=== PATIENT | male | born 1960 | race American Indian/Alaskan Native ===

== ENCOUNTER 2020-01-02 23:52 | Inpatient (IN) | payer OTHER ==
[2020-01-03] MEDS ORDERED: dexAMETHasone 20 MG/5 ML VIAL IV ONE (00:43)
[2020-01-03] MEDS ORDERED: cefTRIAXone/NS 2 GM/100 ML 2 GM/100 ML BAG IV SCH (00:56)
[2020-01-03] MEDS ORDERED: AZITHROMYCIN 500 MG in SODIUM CHLORIDE 0.9% 250ML 250 ML IV SCH ×2 (00:57→22:00)
[2020-01-03 00:59] LABS: Basophils % (Auto) 0.4 % (0.0-1.8); Eosinophils # (Auto) 0.2 K/mm3 (0.0-0.4); Eosinophils % (Auto) 1.4 % (0.0-4.3); Hematocrit 45.8 % (35.5-45.6); Hemoglobin 15.4 gm/dl (11.8-15.2); Lymphocytes # (Auto) 0.7 K/mm3 (1.2-5.4); Lymphocytes % (Auto) 5.5 % (13.4-35.0); Mean Corpuscular HGB Conc 34 % (32-34); Mean Corpuscular Volume 88 fl (84-94); Monocytes # (Auto) 1.2 K/mm3 (0.0-0.8); Monocytes % (Auto) 9.5 % (0.0-7.3); Platelet Count 404 K/mm3 (140-440); Red Blood Count 5.22 M/mm3 (3.65-5.03)
--- NOTE | 2020-01-03 01:02 | XRay Report ---
CHEST 1 VIEW INDICATION / CLINICAL INFORMATION: MARIO, SOB. COMPARISON: None available. FINDINGS: SUPPORT DEVICES: None. HEART / MEDIASTINUM: No significant abnormality. LUNGS / PLEURA: Bilateral peripheral airspace disease No pneumothorax. ADDITIONAL FINDINGS: No significant additional findings. IMPRESSION: Bilateral peripheral airspace disease consistent with atypical or viral pneumonia Signer Name: Aravind Kellogg MD FACR Signed: 01/03/2020 12:58 AM Workstation Name: [id number]
[2020-01-03 01:14] LABS: Alanine Aminotransferase 41 units/L (7-56); Albumin 2.9 g/dL (3.9-5); BUN/Creatinine Ratio 21; Blood Urea Nitrogen 19 mg/dL (9-20); Calcium 8.8 mg/dL (8.4-10.2); Hemolysis Index 8
--- NOTE | 2020-01-03 02:17 | Emergency Department Report ---
HPI - General Chief Complaint: Dyspnea/Respdistress Time Seen by Provider: 01/03/20 00:57 - HPI HPI: This is a 59-year-old -[place] male presents to the emergency department from home with a complaint of a 2-week history of fatigue, one-week history of intermittent fever, body aches, nausea and vomiting, and a 2 to 3-day history of progressively worsening shortness of breath. He has a past medical history of diabetes. Patient had a positive Covid test on 12/24/2019 at an urgent care on [address]. He denies any tobacco or illicit drug use. No recent travel or sick contacts at home. ED Past Medical Hx - Past Medical History Previous Medical History?: Yes Hx Diabetes: Yes - Surgical History Past Surgical History?: No - Social History Smoking Status: Never Smoker Substance Use Type: None ED Review of Systems ROS: Stated complaint: FATIGUE,VOMITTING,SOB,DIFFICULT WALKING Other details as noted in HPI Comment: All other systems reviewed and negative Constitutional: chills, fever Eyes: denies: eye pain, vision change ENT: denies: ear pain, throat pain Respiratory: cough, shortness of breath Cardiovascular: denies: chest pain, edema Gastrointestinal: vomiting. denies: abdominal pain Genitourinary: denies: dysuria, discharge Musculoskeletal: myalgia. denies: joint swelling Skin: denies: rash, lesions Neurological: denies: numbness, paresthesias Physical Exam - Physical Exam Vital Signs: Vital Signs 01/03/20 01/03/20 01/03/20 00:03 00:57 01:36 Temperature 98.1 F 98.8 F Pulse Rate 102 H 100 H Respiratory 22 20 Rate Blood Pressure 116/84 Blood Pressure 114/77 [Right] O2 Sat by Pulse 86 95 95 Oximetry Physical Exam: GENERAL: The patient is well-developed well-nourished. HENT: Normocephalic. Atraumatic. Patient has moist mucous membranes. EYES: Extraocular motions are intact. NECK: Supple. Trachea is midline. CHEST/LUNGS: There is some tachypnea but no accessory muscle use. HEART/CARDIOVASCULAR: Regular. There is mild tachycardia. ABDOMEN: Abdomen is soft, nontender. There is no abdominal distention. SKIN: Skin is warm and dry. NEURO: The patient is awake, alert, and oriented. The patient is cooperative. Normal speech. MUSCULOSKELETAL: There is no tenderness or deformity. ED Course Vital Signs 01/03/20 01/03/20 01/03/20 00:03 00:57 01:36 Temperature 98.1 F 98.8 F Pulse Rate 102 H 100 H Respiratory 22 20 Rate Blood Pressure 116/84 Blood Pressure 114/77 [Right] O2 Sat by Pulse 86 95 95 Oximetry ED Medical Decision Making - Lab Data Result diagrams: 01/03/20 00:22 01/03/20 00:53 - EKG Data -: EKG Interpreted by Me EKG shows normal: sinus rhythm, axis (left axis deviation), intervals, QRS complexes (Anteroseptal Q waves, LVH), ST-T waves Rate: tachycardia (101 bpm) - EKG Data When compared to previous EKG there are: previous EKG unavailable Interpretation: other (Sinus rhythm at 101 bpm, left axis deviation, normal intervals, anteroseptal Q waves, LVH) - Radiology Data Radiology results: image reviewed interpreted by me: Chest x-ray shows bilateral patchy infiltrates concerning for pneumonia - Medical Decision Making This patient presents to the emergency department with a complaint of some shortness of breath and has hypoxia with an oxygen saturation of 86% on room air. The patient has a recent positive COVID-19 test. He was placed on sup plemental oxygen via nasal cannula and the oxygen went up to about 94 to 95%. Chest x-ray shows bilateral pneumonia. His labs have multiple elevated inflammatory markers including d-dimer, LDH, CRP, ferritin, concerning for cytokine storm and consistent with his COVID-19 diagnosis. The patient has received Decadron, IV antibiotics and IV fluid resuscitation. The patient will be admitted to the hospital for further evaluation and treatment and was accepted for admission by the hospitalist, Dr Osorio. Critical Care Time: Yes Critical care time in (mins) excluding proc time.: 35 Critical care attestation.: If time is entered above; I have spent that time in minutes in the direct care of this critically ill patient, excluding procedure time. Critical care time was spent on this patient in doing his initial evaluation, multiple re- evaluations, ordering and interpretation of labs and imaging, treatment of his hypoxia, IV antibiotics, IV fluid resuscitation. Critical Care Time: 35 minutes ED Disposition Clinical Impression: Suspected 2019 novel coronavirus infection, Hypoxia Bilateral pneumonia Qualifiers: Pneumonia type: due to unspecified organism Lung location: unspecified part of lung Qualified Code(s): J18.9 - Pneumonia, unspecified organism Disposition: DC-09 OP ADMIT IP TO THIS HOSP Is pt being admited?: Yes Condition: Serious Time of Disposition: 02:54
[2020-01-03] MEDS ORDERED: SODIUM CHLORIDE 0.9% 1000 ML 1,000 ML IV ONE (02:36)
[2020-01-03] MEDS ORDERED: ACETAMINOPHEN 325 MG TAB PO PRN (03:52)
[2020-01-03] MEDS ORDERED: ONDANSETRON 4 MG/2 ML INJ IV PRN (03:53)
[2020-01-03] MEDS ORDERED: DEXTROSE 50% IN WATER (25GM) 50 ML SYRINGE IV PRN (03:56)
--- NOTE | 2020-01-03 04:41 | History and Physical Report ---
History of Present Illness Date of examination: 01/03/20 Date of admission: 01/03/20 03:47 Chief complaint: Chief complaint is shortness of breath History of present illness: History of presenting illness, patient is a 59-year-old male who has been having shortness of breath going on for 2 weeks, there was also history of fast associated fever, chills, body aches and cough. Patient denied history of chest pain, denied history of nausea and vomiting and said that his shortness of breath became progressively worse in the last 24 to 48 hours. Patient had positive COVID test on December 23 which was done at an urgent care. Past History Past Medical History: diabetes Past Surgical History: No surgical history Social history: no significant social history Family history: no significant family history Medications and Allergies Allergies Allergy/AdvReac Type Severity Reaction Status Date / Time No Known Allergies Allergy Verified 01/03/20 01:04 Active Meds: Active Medications Acetaminophen (Tylenol) 650 mg PO Q4H PRN PRN Reason: Fever >101 Dexamethasone (Decadron) 6 mg IV [facility]ILY [facility] Dextrose (D50w (25gm) Syringe) 50 ml IV Q30MIN PRN; Protocol PRN Reason: Hypoglycemia Heparin Sodium (Porcine) (Heparin) 5,000 unit SUB-Q Q12HR CYN Ceftriaxone Sodium (Rocephin/Ns 2 Gm/100 Ml) 2 gm in 100 mls @ 200 mls/hr IV Q24HR@2200 CYN; Protocol Last Admin: 01/03/20 01:20 Dose: 200 mls/hr Documented by: Sodium Chloride (Nacl 0.9% 1000 Ml) 1,000 mls @ 125 mls/hr IV ONCE ONE Stop: 01/03/20 10:35 Last Admin: 01/03/20 03:35 Dose: 125 mls/hr Documented by: Azithromycin 500 mg/ Sodium (Chloride) 250 mls @ 250 mls/hr IV Q24HR@2200 CYN; Protocol Insulin Human Regular (Humulin R) 0 unit SUB-Q AC CYN; Protocol Insulin Human Regular (Humulin R) 0 unit SUB-Q QHS CYN; Protocol Ondansetron HCl (Zofran) 4 mg IV Q8H PRN PRN Reason: Nausea And Vomiting Review of Systems Constitutional: fever, chills, weakness, malaise, no sweats Eyes: bilateral: other (No Bilateral Eye Symptoms) Ears, nose, mouth and throat: no ear pain, no ear discharge, no decreased hearing, no nose pain, no nasal congestion, no nasal discharge, no sinus pressure, no mouth pain, no dysphagia, no hoarseness, no sore throat, no swelling in mouth, no headache, no vertigo Cardiovascular: shortness of breath, no chest pain, no palpitations, no rapid/irregular heart beat, no edema, no syncope, no lightheadedness Respiratory: shortness of breath, no cough, no hemoptysis, no dyspnea on exertion, no wheezing, no pleurisy Gastrointestinal: no abdominal pain, no nausea, no vomiting, no diarrhea, no constipation, no change in bowel habits, no hematemesis, no hematochezia, no heartburn Genitourinary Male: no dysuria, no hematuria, no urinary frequency, no urinary hesitancy, no incontinence, no erectile dysfunction Rectal: no pain, no itching, no flatulence Musculoskeletal: no neck stiffness, no hot joints Integumentary: no rash, no pruritis, no redness, no sores, no wounds, no jaundice, no boils, no growths, no bullae, no acne, no hirsutism Neurological: weakness, no head injury, no parathesias, no numbness, no syncope, no tremors, no ataxia, no vertigo, no headaches, no convulsions, no change in speech, no confusion Psychiatric: no anxiety, no memory loss, no insomnia, no hypersomnia, no change in appetite, no change in libido, no hopelessness, no anhedonia Endocrine: no cold intolerance, no heat intolerance, no polydipsia, no polyuria, no palpatations Hematologic/Lymphatic: no easy bruising, no easy bleeding, no lymphadenopathy, no thrombophilia Allergic/Immunologic: no urticaria, no persistent infections Exam - Constitutional Vitals: Temp Pulse Resp BP Pulse Ox 98.8 F 81 27 H 123/76 97 01/03/20 00:57 01/03/20 04:00 01/03/20 04:00 01/03/20 04:00 01/03/20 04:00 General appearance: Present: mild distress - EENT Eyes: Present: PERRL, EOM intact ENT: hearing intact - Neck Neck: Present: supple, normal ROM - Respiratory Respiratory effort: normal - Cardiovascular Rhythm: regular Heart Sounds: Present: S1 & S2. Absent: gallop, systolic murmur, diastolic murmur, click - Extremities Extremities: no ischemia, No edema Peripheral Pulses: within normal limits - Abdominal General gastrointestinal: Present: soft, non-tender, non-distended. Absent: [place], distended, rigid, hepatomegaly, splenomegaly, hernia Male genitourinary: Present: deferred - Rectal Rectal Exam: deferred - Integumentary Integumentary: Present: clear, warm, dry. Absent: erythema, jaundice, rash - Musculoskeletal Musculoskeletal: strength equal bilaterally - Psychiatric Psychiatric: appropriate mood/affect HEART Score - HEART Score Age: 45-65 Risk factors: 1-2 risk factors - Critical Actions Critical Actions: 0-3 pts:0.9-1.7%risk of adverse cardiac event.Candidate for discharge Results - Labs CBC & Chem 7: 01/03/20 00:22 01/03/20 00:53 Labs: Laboratory Last Values WBC 12.3 K/mm3 (4.5-11.0) H 01/03/20 00:22 RBC 5.22 M/mm3 (3.65-5.03) H 01/03/20 00:22 Hgb 15.4 gm/dl (11.8-15.2) H 01/03/20 00:22 Hct 45.8 % (35.5-45.6) H 01/03/20 00:22 MCV 88 fl (84-94) 01/03/20 00:22 MCH 30 pg (28-32) 01/03/20 00:22 MCHC 34 % (32-34) 01/03/20 00:22 RDW 13.0 % (13.2-15.2) L 01/03/20 00:22 Plt Count 404 K/mm3 (140-440) 01/03/20 00:22 Lymph % (Auto) 5.5 % (13.4-35.0) L 01/03/20 00:22 Marion % (Auto) 9.5 % (0.0-7.3) H 01/03/20 00:22 Eos % (Auto) 1.4 % (0.0-4.3) 01/03/20 00:22 Baso % (Auto) 0.4 % (0.0-1.8) 01/03/20 00:22 Lymph # 0.7 K/mm3 (1.2-5.4) L 01/03/20 00:22 Marion # 1.2 K/mm3 (0.0-0.8) H 01/03/20 00:22 Eos # 0.2 K/mm3 (0.0-0.4) 01/03/20 00:22 Baso # 0.0 K/mm3 (0.0-0.1) 01/03/20 00:22 Seg Neutrophils % 83.2 % (40.0-70.0) H 01/03/20 00:22 Seg Neutrophils # 10.2 K/mm3 (1.8-7.7) H 01/03/20 00:22 D-Dimer 4932.34 ng/mlDDU (0-234) H 01/03/20 00:53 Sodium 133 mmol/L (137-145) L 01/03/20 00:22 Potassium 3.7 mmol/L (3.6-5.0) 01/03/20 00:22 Chloride 93.9 mmol/L (98-107) L 01/03/20 00:22 Carbon Dioxide 25 mmol/L (22-30) 01/03/20 00:22 Anion Gap 18 mmol/L 01/03/20 00:22 BUN 19 mg/dL (9-20) 01/03/20 00:22 Creatinine 0.9 mg/dL (0.8-1.3) 01/03/20 00:22 Estimated GFR > 60 ml/min 01/03/20 00:22 BUN/Creatinine Ratio 21 % 01/03/20 00:22 Glucose 298 mg/dL (75-100) H 01/03/20 00:53 Calcium 8.8 mg/dL (8.4-10.2) 01/03/20 00:22 Ferritin 1808.0 ng/mL (30.0-300.0) H 01/03/20 00:53 Total Bilirubin 1.30 mg/dL (0.1-1.2) H 01/03/20 00:22 AST 41 units/L (5-40) H 01/03/20 00:22 ALT 41 units/L (7-56) 01/03/20 00:22 Alkaline Phosphatase 49 units/L (35-129) 01/03/20 00:22 Lactate Dehydrogenase 434 units/L (91-180) H 01/03/20 00:53 C-Reactive Protein 9.00 mg/dL (0.00-1.30) H 01/03/20 00:53 Total Protein 7.8 g/dL (6.3-8.2) 01/03/20 00:22 Albumin 2.9 g/dL (3.9-5) L 01/03/20 00:22 Albumin/Globulin Ratio 0.6 % 01/03/20 00:22 Microbiology: Microbiology 01/03/20 01:07 Peripheral/Venous Blood Culture - Preliminary Culture in Progress 01/03/20 01:44 Peripheral/Venous Blood Culture - Preliminary Culture in Progress Assessment and Plan - Patient Problems (1) Diabetes Current Visit: Yes Status: Acute Plan to address problem: 1. Accu Checks 2. Sliding Scale Insulin Coverage 3. Consistent carbohydrate diet (2) Bilateral pneumonia Current Visit: Yes Status: Acute Qualifiers: Pneumonia type: due to unspecified organism Lung location: unspecified part of lung Qualified Code(s): J18.9 - Pneumonia, unspecified organism Plan to address problem: 1. I.V Zithromax Antibiotic 2. I.V Rocephin antibiotic 3. Robitussin for cough (3) Suspected 2019 novel coronavirus infection Current Visit: Yes Status: Acute Plan to address problem: 1. COVID -19 test 2. Contact and Droplet Isolation 3. Infectious disease consult 4. I.V Dexamethasone
[2020-01-03] MEDS: HEPARIN 5,000 UNIT/1 ML VIAL SUB-Q SCH (09:18)
[2020-01-03] MEDS: DEXAMETHASONE 4 MG TAB PO SCH (09:18)
[2020-01-03] MEDS ORDERED: dexAMETHasone 4 MG/ML VIAL IV SCH (10:00)
[2020-01-03] MEDS: INSULIN REGULAR, HUMAN 100 UNIT/ML 3ML VIAL SUB-Q SCH ×3 (10:23→19:10)
--- NOTE | 2020-01-03 11:56 | Consultation ---
History of Present Illness - Reason for Consult Consult date: 01/03/20 COVID Requesting physician: JESSICA LEYVA - History of Present Illness 59 years old male with history of diabetes, admitted on 01/03/2020 due to 2-week history of body aches, malaise, fever, chills, dry cough and progressive shortness of breath. Shortness of breath became worse over the last 48 hours. Patient tested positive for COVID-19 on 12/24/2019 at an urgent care facility. On arrival, temperature 98.1, HR 102, RR 28, O2 sat 86% on room air, BP 116/84. Initial WBC 12.2. D-dimer 4938. LDH 434. CRP 9. Procalcitonin 0.16. Glucose 286. Patient currently is on 3 L nasal cannula oxygen. Review of Systems: reviewed ED and H&P notes. Limited due to PPE conservation strategy Past History Past Medical History: diabetes Past Surgical History: No surgical history Social history: no significant social history Family history: no significant family history Medications and Allergies Allergies Allergy/AdvReac Type Severity Reaction Status Date / Time No Known Allergies Allergy Verified 01/03/20 01:04 Active Meds: Active Medications Acetaminophen (Tylenol) 650 mg PO Q4H PRN PRN Reason: Fever >101 Azithromycin (Zithromax) 500 mg PO QHS CYN Stop: 01/06/20 22:01 Dexamethasone (Decadron) 6 mg PO DAILY [facility] Last Admin: 01/03/20 09:18 Dose: 6 mg Documented by: Dextrose (D50w (25gm) Syringe) 50 ml IV Q30MIN PRN; Protocol PRN Reason: Hypoglycemia Heparin Sodium (Porcine) (Heparin) 5,000 unit SUB-Q Q12HR [facility] Last Admin: 01/03/20 09:18 Dose: 5,000 unit Documented by: Ceftriaxone Sodium (Rocephin/Ns 2 Gm/100 Ml) 2 gm in 100 mls @ 200 mls/hr IV Q24HR@2200 CYN; Protocol Last Admin: 01/03/20 01:20 Dose: 200 mls/hr Documented by: REMDESIVIR 200 mg/ Sodium (Chloride) 250 mls @ 500 mls/hr IV ONCE ONE Stop: 01/03/20 12:17 REMDESIVIR 100 mg/ Sodium (Chloride) 250 mls @ 500 mls/hr IV Q24HR@2100 [facility] Stop: 01/07/20 21:29 Insulin Human Regular (Humulin R) 0 unit SUB-Q AC [facility]; Protocol Last Admin: 01/03/20 10:23 Dose: 4 unit Documented by: Insulin Human Regular (Humulin R) 0 unit SUB-Q QHS [facility]; Protocol Ondansetron HCl (Zofran) 4 mg IV Q8H PRN PRN Reason: Nausea And Vomiting Sodium Chloride (Nacl 0.9%) 50 ml IV Q24H [facility] Stop: 01/07/20 12:01 Physical Examination - Physical Exam Narrative exam: Physical Exam: reviewed ED and hospitalist notes, limited due to conservation of PPE General appearance: limited due to conservation of PPE Eyes: limited due to conservation of PPE HENT: Atraumatic; limited due to conservation of PPE Lungs: limited due to conservation of PPE CV: limited due to conservation of PPE Abdomen: limited due to conservation of PPE Extremities: limited due to conservation of PPE Skin: limited due to conservation of PPE Psych: limited due to conservation of PPE Neuro: limited due to conservation of PPE - Constitutional Vitals: Vital Signs Temp Pulse Resp BP Pulse Ox 98.8 F 79 20 123/76 98 01/03/20 00:57 01/03/20 05:15 01/03/20 05:15 01/03/20 05:15 01/03/20 08:43 Temperature -Last 24 Hours Temperature 98.8 F Temperature 98.1 F Results - Labs CBC & Chem 7: 01/03/20 00:22 01/03/20 00:53 Labs: Abnormal lab results 01/03/20 01/03/20 01/03/20 Range/Units 00:22 00:22 00:53 WBC 12.3 H (4.5-11.0) K/mm3 RBC 5.22 H (3.65-5.03) M/mm3 Hgb 15.4 H (11.8-15.2) gm/dl Hct 45.8 H (35.5-45.6) % RDW 13.0 L (13.2-15.2) % Lymph % (Auto) 5.5 L (13.4-35.0) % Antelope % (Auto) 9.5 H (0.0-7.3) % Lymph # 0.7 L (1.2-5.4) K/mm3 Antelope # 1.2 H (0.0-0.8) K/mm3 Seg Neutrophils % 83.2 H (40.0-70.0) % Seg Neutrophils # 10.2 H (1.8-7.7) K/mm3 D-Dimer 4932.34 H (0-234) ng/mlDDU Sodium 133 L (137-145) mmol/L Chloride 93.9 L (98-107) mmol/L Glucose 286 H (75-100) mg/dL POC Glucose (70-105) Ferritin (30.0-300.0) ng/mL Total Bilirubin 1.30 H (0.1-1.2) mg/dL AST 41 H (5-40) units/L Lactate Dehydrogenase (91-180) units/L C-Reactive Protein (0.00-1.30) mg/dL Albumin 2.9 L (3.9-5) g/dL 01/03/20 01/03/20 01/03/20 Range/Units 00:53 00:53 09:38 WBC (4.5-11.0) K/mm3 RBC (3.65-5.03) M/mm3 Hgb (11.8-15.2) gm/dl Hct (35.5-45.6) % RDW (13.2-15.2) % Lymph % (Auto) (13.4-35.0) % Antelope % (Auto) (0.0-7.3) % Lymph # (1.2-5.4) K/mm3 [place]elope # (0.0-0.8) K/mm3 Seg Neutrophils % (40.0-70.0) % Seg Neutrophils # (1.8-7.7) K/mm3 D-Dimer (0-234) ng/mlDDU Sodium (137-145) mmol/L Chloride (98-107) mmol/L Glucose 298 H (75-100) mg/dL POC Glucose 343 H (70-105) Ferritin 1808.0 H (30.0-300.0) ng/mL Total Bilirubin (0.1-1.2) mg/dL AST (5-40) units/L Lactate Dehydrogenase 434 H (91-180) units/L C-Reactive Protein 9.00 H (0.00-1.30) mg/dL Albumin (3.9-5) g/dL Assessment and Plan Cultures: Blood culture pending COVID PCR pending COVID PCR 12/25/2019 positive Assessment: 59 years old male with history of diabetes, admitted 01/03/2020 due to 2-week history of body ache, malaise, fever, chills, dry cough and progressive shortness of breath: #Severe sepsis: With tachycardia, leukocytosis and hypoxia, likely due to bilateral pneumonia. #Severe COVID pneumonia: Chest x-ray with diffuse bilateral infiltrates. Inflammatory markers are elevated elevated -ferritin. Likely cytokine storm. Very high d-dimer 4938, risk for venous thromboembolism. #Acute hypoxemic respiratory failure: Initial O2 sats on room air, currently on 3 L oxygen #Elevated LFTs: Mild, from COVID #Diabetes mellitus: Uncontrolled Recommendations: -Start Dexamethasone 6 mg IV/PO daily for 10 days -Start Remdesivir 200 mg IV q day x 1 day followed by 100 mg IV q day x 4 days (CrCl>30. Order placed) -Monitor inflammatory markers - ferritin, Ddimer, CRP, LDH -Stop ceftriaxone and azithromycin, procalcitonin <0.25 ng/mL -Continue anticoagulation per protocol -Tight glycemic control Will follow Alyssa Hardy MD Infectious Diseases Customer Account Representative [facility], [facility] ([facility]) M [phone]
--- NOTE | 2020-01-03 13:57 | Event Note ---
Date: 01/03/20 59 years old male patient with history of diabetes, admitted this morning with 2-week history of body ache, malaise, fever, chills, dry cough and progressive shortness of breath: Initial work-up is consistent with severe sepsis, evaluated by ID., Reviewed the medical records, agree with the current management. Will follow pending work-up, adjust the management as needed, plan of care reviewed with the patient and his nurse
[2020-01-03] MEDS ORDERED: REMDESIVIR 200 MG in SODIUM CHLORIDE 0.9% 250ML 250 ML IV ONE (17:00)
[2020-01-03] MEDS ORDERED: SODIUM CHLORIDE 0.9% 50 ML IVPB IV SCH (17:00)
[2020-01-03] MEDS ORDERED: INSULIN NPH/REGULAR 70/30 INJ SUB-Q ONE (19:30)
[2020-01-03] MEDS ORDERED: AZITHROMYCIN 250 MG TAB PO SCH (22:00)
[2020-01-04] MEDS: INSULIN REGULAR, HUMAN 100 UNIT/ML 3ML VIAL SUB-Q SCH ×5 (00:07→22:25)
[2020-01-04] MEDS: HEPARIN 5,000 UNIT/1 ML VIAL SUB-Q SCH ×2 (00:07→09:58)
[2020-01-04] MEDS: INSULIN NPH/REGULAR 70/30 INJ SUB-Q SCH ×2 (08:33→16:54)
--- NOTE | 2020-01-04 08:59 | Progress Note ---
Assessment and Plan Cultures: Blood culture pending COVID PCR 12/25/2019 positive (outpatient) COVID PCR 01/03/2020 negative Assessment: 59 years old male with history of diabetes, admitted 01/03/2020 due to 2-week history of body ache, malaise, fever, chills, dry cough and progressive shortness of breath: #Severe sepsis: better, likely due to bilateral pneumonia. #Likely Severe COVID pneumonia: Chest x-ray with diffuse bilateral infiltrates. Inflammatory markers are elevated elevated -ferritin. Likely cytokine storm. Very high d-dimer 4938, risk for venous thromboembolism. COVID PCR 01/03/2020 negative. #Acute hypoxemic respiratory failure: currently NC 2L sats 95% #Elevated LFTs: Mild, from COVID #Diabetes mellitus: Uncontrolled Recommendations: -continueDexamethasone 6 mg IV/PO daily for 10 days -hold off Remdesivir as hypoxia is mild and COVID PCR negative. -Monitor inflammatory markers - ferritin, Ddimer, CRP, LDH -Continue anticoagulation per protocol - consider full anticoagulation if ddimer worsens -Tight glycemic control Will follow Alyssa Hardy MD Infectious Diseases Psychiatric Orderly [facility] ([facility]) [phone] Subjective Date of service: 01/04/20 Principal diagnosis: COVID Interval history: Remains on NC 2 L sats 95% Objective - Exam Narrative Exam: Physical Exam: reviewed ED and hospitalist notes, limited due to conservation of PPE General appearance: limited due to conservation of PPE Eyes: limited due to conservation of PPE HENT: Atraumatic; limited due to conservation of PPE Lungs: limited due to conservation of PPE CV: limited due to conservation of PPE Abdomen: limited due to conservation of PPE Extremities: limited due to conservation of PPE Skin: limited due to conservation of PPE Psych: limited due to conservation of PPE Neuro: limited due to conservation of PPE - Constitutional Vitals: Vital Signs Temp Pulse Resp BP Pulse Ox 98.0 F 60 18 111/70 95 01/04/20 05:17 01/04/20 04:00 01/04/20 05:17 01/04/20 05:17 01/04/20 04:00 Temperature -Last 24 Hours Temperature 98.0 F Temperature 98 F Temperature 97.3 F Temperature 98.0 F Temperature 97.7 F - Labs CBC & Chem 7: 01/03/20 00:22 01/03/20 00:53 Labs: Abnormal lab results 01/03/20 01/03/20 01/03/20 Range/Units 09:38 12:34 17:06 POC Glucose 343 H 331 H 422 H (70-105) 01/03/20 01/03/20 01/04/20 Range/Units 19:55 23:27 07:47 POC Glucose 422 H 336 H 272 H (70-105)
[2020-01-04] MEDS: DEXAMETHASONE 4 MG TAB PO SCH (09:58)
[2020-01-04] MEDS ORDERED: POTASSIUM CHLORIDE ER 20 MEQ TAB PO ONE (13:30)
--- NOTE | 2020-01-04 15:25 | Cat Scan Report ---
CTA CHEST WITH CONTRAST INDICATION : P.E. PROTOCOL!!! Elevated D-dimer / Shortness of breath. TECHNIQUE: Axial imaging performed through the chest, with contrast bolus timing set to maximize opa cification of the pulmonary arteries. Sagittal and coronal reformatted images. 3-plane MIP reformatte d images were obtained. All CT scans at this location are performed using CT dose reduction for ALAR A by means of automated exposure control. 100 mL of intravenous contrast administered. COMPARISON: None FINDINGS: Bolus: Contrast bolus timing is adequate. PTE: This examination is slightly limited by breathing motion artifact. No pulmonary embolus is dete cted. Mediastinum: Heart and great vessels appear normal. No pathologic mediastinal adenopathy. Lungs: Diffuse bilateral lung opacities are identified with peripheral and basilar predominance. No evidence for nodule, mass, consolidation, pleural fluid or pneumothorax. Bones: No significant abnormality. Upper abdomen: Limited imaging of the upper abdomen shows nothing acute. IMPRESSION: No pulmonary embolus is identified. Diffuse bilateral lung opacities are identified concerning for atypical pneumonia or viral infection/ Covid. Please correlate with the patient's clinical presentation. Signer Name: Isreal Rainey Jr, MD Signed: 01/04/2020 3:20 PM Workstation Name: [id number]
--- NOTE | 2020-01-04 16:38 | Vascular Lab Report ---
DUPLEX DOPPLER LOWER EXTREMITY VEINS, BILATERAL INDICATION / CLINICAL INFORMATION: Elevated D-dimers/evaluate for DVT. TECHNIQUE: Duplex doppler imaging was performed through the veins of both lower extremities using venous gosia hortencia and other maneuvers. COMPARISON: None available. FINDINGS: RIGHT COMMON FEMORAL VEIN: Negative. RIGHT FEMORAL VEIN: Negative. RIGHT POPLITEAL VEIN: Negative. RIGHT CALF VEINS: Negative. LEFT COMMON FEMORAL VEIN: Negative. LEFT FEMORAL VEIN: Negative. LEFT POPLITEAL VEIN: Negative. LEFT CALF VEINS: Negative. ADDITIONAL FINDINGS: None. IMPRESSION: 1. No sonographic evidence for DVT in either lower extremity. Signer Name: Daniel Watkins MD Signed: 01/04/2020 4:33 PM Workstation Name: [id number]
--- NOTE | 2020-01-04 19:21 | Progress Note ---
Assessment and Plan Assessment and plan: --History of positive COVID[12/25/2019/outside] COVID-19 test -01/03/2020 However patient's inflammatory markers are very high. Continue dexamethasone. --Severe sepsis/bilateral pneumonia DC empiric antibiotics, oxygen and supportive care --Type 2 diabetes mellitus; uncontrolled Accu-Chek sliding scale coverage ADA diet Increase insulin 70/30 dose to 20 units subcu twice a day Check A1c, diabetic education, diabetic nutrition education --Elevated D-dimers; CTA chest negative for PE, lower extremity venous Doppler negative for DVT High risk for venous thromboembolism Recommend full dose anticoagulation --Severe malnutrition/hypoalbuminemia Nutrition supplements, nutrition consult --Very mild transaminitis; probably from COVID Trend LFTs, supportive care --DVT prophylaxis; on full anticoagulation Per COVID protocol Closely monitor the patient and adjust management as needed Plan of care reviewed with the patient and his nurse Medical Office Professional Instructor recommendations noted and appreciated History Interval history: Have seen and examined the patient at the bedside Patient's chart and medications reviewed Patient complains of generalized weakness Wants to go home Patient is afebrile, mild distress Vital signs noted Hospitalist Physical - Constitutional Vitals: Temp Pulse Resp BP Pulse Ox 98.5 F 80 18 131/83 97 01/04/20 15:53 01/04/20 15:53 01/04/20 15:53 01/04/20 15:53 01/04/20 15:53 General appearance: Present: mild distress, well-nourished - EENT Eyes: Present: PERRL, EOM intact - Neck Neck: Present: supple, normal ROM - Respiratory Respiratory effort: normal Respiratory: bilateral: diminished, rhonchi, negative: rales, wheezing - Cardiovascular Rhythm: regular Heart Sounds: Present: S1 & S2 - Extremities Extremities: no ischemia, No edema - Abdominal General gastrointestinal: soft, non-tender, non-distended, normal bowel sounds - Integumentary Integumentary: Present: clear, warm - Psychiatric Psychiatric: appropriate mood/affect, cooperative - Neurologic Neurologic: CNII-XII intact, moves all extremities HEART Score - HEART Score Age: 45-65 Risk factors: 1-2 risk factors - Critical Actions Critical Actions: 0-3 pts:0.9-1.7%risk of adverse cardiac event.Candidate for discharge Results - Labs CBC & Chem 7: 01/03/20 00:22 01/03/20 00:53 Labs: Laboratory Last Values WBC 12.3 K/mm3 (4.5-11.0) H 01/03/20 00:22 RBC 5.22 M/mm3 (3.65-5.03) H 01/03/20 00:22 Hgb 15.4 gm/dl (11.8-15.2) H 01/03/20 00:22 Hct 45.8 % (35.5-45.6) H 01/03/20 00:22 MCV 88 fl (84-94) 01/03/20 00:22 MCH 30 pg (28-32) 01/03/20 00:22 MCHC 34 % (32-34) 01/03/20 00:22 RDW 13.0 % (13.2-15.2) L 01/03/20 00:22 Plt Count 404 K/mm3 (140-440) 01/03/20 00:22 Lymph % (Auto) 5.5 % (13.4-35.0) L 01/03/20 00:22 [place] % (Auto) 9.5 % (0.0-7.3) H 01/03/20 00:22 Eos % (Auto) 1.4 % (0.0-4.3) 01/03/20 00:22 Baso % (Auto) 0.4 % (0.0-1.8) 01/03/20 00:22 Lymph # 0.7 K/mm3 (1.2-5.4) L 01/03/20 00:22 [place] # 1.2 K/mm3 (0.0-0.8) H 01/03/20 00:22 Eos # 0.2 K/mm3 (0.0-0.4) 01/03/20 00:22 Baso # 0.0 K/mm3 (0.0-0.1) 01/03/20 00:22 Seg Neutrophils % 83.2 % (40.0-70.0) H 01/03/20 00:22 Seg Neutrophils # 10.2 K/mm3 (1.8-7.7) H 01/03/20 00:22 D-Dimer 4932.34 ng/mlDDU (0-234) H 01/03/20 00:53 Sodium 133 mmol/L (137-145) L 01/03/20 00:22 Potassium 3.7 mmol/L (3.6-5.0) 01/03/20 00:22 Chloride 93.9 mmol/L (98-107) L 01/03/20 00:22 Carbon Dioxide 25 mmol/L (22-30) 01/03/20 00:22 Anion Gap 18 mmol/L 01/03/20 00:22 BUN 19 mg/dL (9-20) 01/03/20 00:22 Creatinine 0.9 mg/dL (0.8-1.3) 01/03/20 00:22 Estimated GFR > 60 ml/min 01/03/20 00:22 BUN/Creatinine Ratio 21 % 01/03/20 00:22 Glucose 298 mg/dL (75-100) H 01/03/20 00:53 POC Glucose 319 (70-105) H 01/04/20 16:08 Calcium 8.8 mg/dL (8.4-10.2) 01/03/20 00:22 Ferritin 1808.0 ng/mL (30.0-300.0) H 01/03/20 00:53 Total Bilirubin 1.30 mg/dL (0.1-1.2) H 01/03/20 00:22 AST 41 units/L (5-40) H 01/03/20 00:22 ALT 41 units/L (7-56) 01/03/20 00:22 Alkaline Phosphatase 49 units/L (35-129) 01/03/20 00:22 Lactate Dehydrogenase 434 units/L (91-180) H 01/03/20 00:53 C-Reactive Protein 9.00 mg/dL (0.00-1.30) H 01/03/20 00:53 Total Protein 7.8 g/dL (6.3-8.2) 01/03/20 00:22 Albumin 2.9 g/dL (3.9-5) L 01/03/20 00:22 Albumin/Globulin Ratio 0.6 % 01/03/20 00:22 Procalcitonin 0.16 ng/mL (<0.15) 01/03/20 00:53 Coronavirus (PCR) Negative (Negative) 01/03/20 08:18 Microbiology: Microbiology 01/03/20 01:07 Peripheral/Venous Blood Culture - Preliminary NO GROWTH AFTER 24 HOURS 01/03/20 01:44 Peripheral/Venous Blood Culture - Preliminary NO GROWTH AFTER 24 HOURS Nieves/IV: Voiding Method Toilet IV Catheter Type [Right INT / Saline Lock Antecubital] IV Catheter Type [Left Forearm INT / Saline Lock ] Active Medications - Current Medications Current Medications: Generic Name Dose Route Start Last Admin Trade Name Freq PRN Reason Stop Dose Admin Acetaminophen 650 mg 01/03/20 03:52 Tylenol PO Q4H PRN Fever >101 Dexamethasone 6 mg 01/03/20 10:00 01/04/20 09:58 Decadron PO 01/12/20 10:01 6 mg DAILY CYN Administration Dextrose 50 ml 01/03/20 03:56 D50w (25gm) Syringe IV Q30MIN PRN Hypoglycemia Protocol Heparin Sodium (Porcine) 5,000 unit 01/03/20 10:00 01/04/20 09:58 Heparin SUB-Q 5,000 unit Q12HR CYN Administration Insulin Human Isoph/Insulin Regular 10 unit 01/04/20 08:00 01/04/20 16:54 Humulin 70/30 SUB-Q 10 unit BIDDIAB CYN Administration Insulin Human Regular 0 unit 01/03/20 07:30 01/04/20 16:50 Humulin R SUB-Q 4 unit AC CYN Administration Protocol Insulin Human Regular 0 unit 01/03/20 22:00 01/04/20 00:07 Humulin R SUB-Q 4 unit QHS CYN Administration Protocol Ondansetron HCl 4 mg 01/03/20 03:53 Zofran IV Q8H PRN Nausea And Vomiting Nutrition/Malnutrition Assess - Dietary Evaluation Nutrition/Malnutrition Findings: Nutrition Notes Start: 01/04/20 13:30 Freq: Status: Active Protocol: Document 01/04/20 13:30 LM (Rec: 01/04/20 13:31 LM [id number]) Nutrition Notes Need for Assessment generated from: senior product integrity engineer Initial or Follow up Brief Note Subjective/Other Information RN screen for skin risk. Jayjay score is 21. Pt has 100 % intakes in chart. Nutrition Intervention Revisit per MD consult or patient Sign Off request:
[2020-01-04] MEDS ORDERED: REMDESIVIR 100 MG in SODIUM CHLORIDE 0.9% 250ML 250 ML IV SCH (21:00)
[2020-01-04] MEDS: ENOXAPARIN 100 MG/1 ML INJ SUB-Q SCH ×2 (22:21→22:31)
[2020-01-05] MEDS: INSULIN NPH/REGULAR 70/30 INJ SUB-Q SCH ×2 (09:57→17:23)
[2020-01-05] MEDS: INSULIN REGULAR, HUMAN 100 UNIT/ML 3ML VIAL SUB-Q SCH ×4 (09:58→22:18)
[2020-01-05] MEDS: ENOXAPARIN 100 MG/1 ML INJ SUB-Q SCH ×2 (09:58→22:19)
[2020-01-05] MEDS: DEXAMETHASONE 4 MG TAB PO SCH (10:01)
--- NOTE | 2020-01-05 13:14 | Progress Note ---
Assessment and Plan Cultures: Blood culture pending COVID PCR 12/25/2019 positive (outpatient) COVID PCR 01/03/2020 negative Assessment: 59 years old male with history of diabetes, admitted 01/03/2020 due to 2-week history of body ache, malaise, fever, chills, dry cough and progressive shortness of breath: #Severe sepsis: better, likely due to bilateral pneumonia. #Likely Severe COVID pneumonia: Chest x-ray with diffuse bilateral infiltrates. Inflammatory markers are very high, likely cytokine storm. Very high d-dimer 4938, risk for venous thromboembolism. COVID PCR 01/03/2020 negative. Initial COVID PCR 12/25/2019+ as an outpatient. #Acute hypoxemic respiratory failure: currently NC 2L sats 93% #Elevated LFTs: Mild, from COVID #Diabetes mellitus: Uncontrolled, now better Recommendations: -Obtain ambulating oxygen saturation -continueDexamethasone 6 mg IV/PO daily for 10 days -day 2 out of 10 -hold off Remdesivir as hypoxia is mild and COVID PCR negative. -Monitor inflammatory markers - ferritin, Ddimer, CRP, LDH, check today -Continue anticoagulation per protocol - consider full anticoagulation if ddimer worsens -Tight glycemic control Dr. Silverman will be covering the weekend, Dr. Patton will be rounding on Wednesday. Will follow Alyssa Hardy MD Infectious Diseases Radiology Manager [facility] ([facility]) M [phone] Subjective Date of service: 01/05/20 Principal diagnosis: COVID Interval history: Remains on NC 2 L sats 93% Objective - Exam Narrative Exam: Physical Exam: reviewed ED and hospitalist notes, limited due to conservation of PPE General appearance: limited due to conservation of PPE Eyes: limited due to conservation of PPE HENT: Atraumatic; limited due to conservation of PPE Lungs: limited due to conservation of PPE CV: limited due to conservation of PPE Abdomen: limited due to conservation of PPE Extremities: limited due to conservation of PPE Skin: limited due to conservation of PPE Psych: limited due to conservation of PPE Neuro: limited due to conservation of PPE - Constitutional Vitals: Vital Signs Temp Pulse Resp BP Pulse Ox 98.3 F 61 20 137/82 93 01/05/20 05:51 01/05/20 05:51 01/05/20 05:51 01/05/20 05:51 01/05/20 05:51 Temperature -Last 24 Hours Temperature 98.3 F Temperature 98.3 F Temperature 98.5 F - Labs CBC & Chem 7: 01/03/20 00:22 01/03/20 00:53 Labs: Abnormal lab results 01/04/20 01/04/20 01/05/20 Range/Units 16:08 22:10 09:52 POC Glucose 319 H 301 H 152 H (70-105)
[2020-01-05 14:41] LABS: C-Reactive Protein 2.3 mg/dL (0.00-1.30)
--- NOTE | 2020-01-05 18:26 | Progress Note ---
Assessment and Plan Assessment and plan: --History of positive COVID[12/25/2019/outside] COVID-19 test -01/03/2020 However patient's inflammatory markers are very high. -Droplet and contact isolation -Continue dexamethasone total 10 days -No Remdisivir as patient is not hypoxic, and recent COVID is negative -Continue full dose anticoagulation -Trend inflammatory markers --Severe sepsis/bilateral pneumonia DC empiric antibiotics, oxygen and supportive care --Type 2 diabetes mellitus; uncontrolled Accu-Chek sliding scale coverage ADA diet Increase insulin 70/30 dose to 24 units subcu twice a day Check A1c, diabetic education, diabetic nutrition education --Elevated D-dimers; CTA chest negative for PE, lower extremity venous Doppler negative for DVT High risk for venous thromboembolism, full dose anticoagulation --Severe malnutrition/hypoalbuminemia Nutrition supplements, nutrition consult --Very mild transaminitis; probably from COVID Trend LFTs, supportive care --DVT prophylaxis; on full anticoagulation Per COVID protocol --Full CODE STATUS Closely monitor the patient and adjust management as needed Plan of care reviewed with the patient and his nurse Patent Law Specialist recommendations noted and appreciated History Interval history: I have seen and examined the patient in the bedside Isolation precautions and PPE protocols observed Patient feels slightly better No new complaints Vital signs noted Hospitalist Physical - Constitutional Vitals: Temp Pulse Resp BP Pulse Ox 98.7 F 94 H 20 143/85 93 01/05/20 15:42 01/05/20 15:42 01/05/20 15:42 01/05/20 15:42 01/05/20 15:42 General appearance: Present: no acute distress, well-nourished - EENT Eyes: Present: PERRL, EOM intact - Neck Neck: Present: supple, normal ROM - Respiratory Respiratory effort: normal Respiratory: bilateral: diminished, rhonchi, negative: rales, wheezing - Cardiovascular Rhythm: regular Heart Sounds: Present: S1 & S2 - Extremities Extremities: no ischemia, No edema - Abdominal General gastrointestinal: soft, non-tender, non-distended, normal bowel sounds - Integumentary Integumentary: Present: clear, warm - Psychiatric Psychiatric: appropriate mood/affect, cooperative - Neurologic Neurologic: CNII-XII intact, moves all extremities HEART Score - HEART Score Age: 45-65 Risk factors: 1-2 risk factors - Critical Actions Critical Actions: 0-3 pts:0.9-1.7%risk of adverse cardiac event.Candidate for discharge Results - Labs CBC & Chem 7: 01/03/20 00:22 01/03/20 00:53 Labs: Laboratory Last Values WBC 12.3 K/mm3 (4.5-11.0) H 01/03/20 00:22 RBC 5.22 M/mm3 (3.65-5.03) H 01/03/20 00:22 Hgb 15.4 gm/dl (11.8-15.2) H 01/03/20 00:22 Hct 45.8 % (35.5-45.6) H 01/03/20 00:22 MCV 88 fl (84-94) 01/03/20 00:22 MCH 30 pg (28-32) 01/03/20 00:22 MCHC 34 % (32-34) 01/03/20 00:22 RDW 13.0 % (13.2-15.2) L 01/03/20 00:22 Plt Count 404 K/mm3 (140-440) 01/03/20 00:22 Lymph % (Auto) 5.5 % (13.4-35.0) L 01/03/20 00:22 [place] % (Auto) 9.5 % (0.0-7.3) H 01/03/20 00:22 Eos % (Auto) 1.4 % (0.0-4.3) 01/03/20 00:22 Baso % (Auto) 0.4 % (0.0-1.8) 01/03/20 00:22 Lymph # 0.7 K/mm3 (1.2-5.4) L 01/03/20 00:22 [place] # 1.2 K/mm3 (0.0-0.8) H 01/03/20 00:22 Eos # 0.2 K/mm3 (0.0-0.4) 01/03/20 00:22 Baso # 0.0 K/mm3 (0.0-0.1) 01/03/20 00:22 Seg Neutrophils % 83.2 % (40.0-70.0) H 01/03/20 00:22 Seg Neutrophils # 10.2 K/mm3 (1.8-7.7) H 01/03/20 00:22 D-Dimer 3759.27 ng/mlDDU (0-234) H 01/05/20 13:35 Sodium 133 mmol/L (137-145) L 01/03/20 00:22 Potassium 3.7 mmol/L (3.6-5.0) 01/03/20 00:22 Chloride 93.9 mmol/L (98-107) L 01/03/20 00:22 Carbon Dioxide 25 mmol/L (22-30) 01/03/20 00:22 Anion Gap 18 mmol/L 01/03/20 00:22 BUN 19 mg/dL (9-20) 01/03/20 00:22 Creatinine 0.9 mg/dL (0.8-1.3) 01/03/20 00:22 Estimated GFR > 60 ml/min 01/03/20 00:22 BUN/Creatinine Ratio 21 % 01/03/20 00:22 Glucose 298 mg/dL (75-100) H 01/03/20 00:53 POC Glucose 365 (70-105) H 01/05/20 17:00 Calcium 8.8 mg/dL (8.4-10.2) 01/03/20 00:22 Ferritin 1268.0 ng/mL (30.0-300.0) H 01/05/20 13:35 Total Bilirubin 1.30 mg/dL (0.1-1.2) H 01/03/20 00:22 AST 41 units/L (5-40) H 01/03/20 00:22 ALT 41 units/L (7-56) 01/03/20 00:22 Alkaline Phosphatase 49 units/L (35-129) 01/03/20 00:22 Lactate Dehydrogenase 357 units/L (91-180) H 01/05/20 13:35 C-Reactive Protein 2.30 mg/dL (0.00-1.30) H 01/05/20 13:35 Total Protein 7.8 g/dL (6.3-8.2) 01/03/20 00:22 Albumin 2.9 g/dL (3.9-5) L 01/03/20 00:22 Albumin/Globulin Ratio 0.6 % 01/03/20 00:22 Procalcitonin 0.16 ng/mL (<0.15) 01/03/20 00:53 Coronavirus (PCR) Negative (Negative) 01/03/20 08:18 Microbiology: Microbiology 01/03/20 01:07 Peripheral/Venous Blood Culture - Preliminary NO GROWTH AFTER 48 HOURS 01/03/20 01:44 Peripheral/Venous Blood Culture - Preliminary NO GROWTH AFTER 48 HOURS Nieves/IV: Voiding Method Toilet IV Catheter Type [Right INT / Saline Lock Antecubital] IV Catheter Type [Left Forearm INT / Saline Lock ] Active Medications - Current Medications Current Medications: Generic Name Dose Route Start Last Admin Trade Name Freq PRN Reason Stop Dose Admin Acetaminophen 650 mg 01/03/20 03:52 Tylenol PO Q4H PRN Fever >101 Dexamethasone 6 mg 01/03/20 10:00 01/05/20 10:01 Decadron PO 01/12/20 10:01 6 mg DAILY CYN Administration Dextrose 50 ml 01/03/20 03:56 D50w (25gm) Syringe IV Q30MIN PRN Hypoglycemia Protocol Enoxaparin Sodium 90 mg 01/04/20 22:00 01/05/20 09:58 Enoxaparin 1 mg/kg (90 mg) 90 mg SUB-Q Administration Q12HR CYN Insulin Human Isoph/Insulin Regular 20 unit 01/04/20 19:19 01/05/20 17:23 Humulin 70/30 SUB-Q 20 unit BIDDIAB CYN Administration Insulin Human Regular 0 unit 01/03/20 07:30 01/05/20 17:23 Humulin R SUB-Q 5 unit AC CYN Administration Protocol Insulin Human Regular 0 unit 01/03/20 22:00 01/04/20 22:25 Humulin R SUB-Q 4 unit QHS CYN Administration Protocol Ondansetron HCl 4 mg 01/03/20 03:53 Zofran IV Q8H PRN Nausea And Vomiting Nutrition/Malnutrition Assess - Dietary Evaluation Nutrition/Malnutrition Findings: Nutrition Notes Start: 01/04/20 13:30 Freq: Status: Active Protocol: Document 01/04/20 13:30 LM (Rec: 01/04/20 13:31 LM [id number]) Nutrition Notes Need for Assessment generated from: bean sorter Initial or Follow up Brief Note Subjective/Other Information RN screen for skin risk. Jayjay score is 21. Pt has 100 % intakes in chart. Nutrition Intervention Revisit per MD consult or patient Sign Off request:
--- NOTE | 2020-01-06 08:45 | Progress Note ---
Assessment and Plan Assessment and plan: --History of positive COVID[12/25/2019/outside] COVID-19 negative test -01/03/2020 However patient's inflammatory markers are very high. -Droplet and contact isolation -Continue dexamethasone total 10 days -No Remdisivir as patient is not hypoxic, and recent COVID is negative -Continue full dose anticoagulation -Trend inflammatory markers -Resting room air O2 sat 94%, ambulatory O2 sat 89%[01/05/20] --Severe bilateral COVID pneumonia /severe sepsis DC empiric antibiotics, oxygen and supportive care --Type 2 diabetes mellitus; uncontrolled Accu-Chek sliding scale coverage ADA diet Increase insulin 70/30 dose to 24 units subcu twice a day Check A1c, diabetic education, diabetic nutrition education --Elevated D-dimers; CTA chest negative for PE, lower extremity venous Doppler negative for DVT High risk for venous thromboembolism, full dose anticoagulation --Severe malnutrition/hypoalbuminemia Nutrition supplements, nutrition consult --Very mild transaminitis; probably from COVID Trend LFTs, supportive care --DVT prophylaxis; on full anticoagulation Per COVID protocol --Full CODE STATUS Closely monitor the patient and adjust management as needed Plan of care reviewed with the patient and his nurse Email Designer recommendations noted and appreciated Disposition; DC home when medically stable and cleared by ID History Interval history: I have seen and examined the patient at the bedside this morning Isolation precautions and PPE protocols followed Patient is anxious to go home Feels slightly better Alert awake oriented Vital signs reviewed Hospitalist Physical - Constitutional Vitals: Temp Pulse Resp BP Pulse Ox 98.5 F 87 20 124/86 93 01/06/20 04:31 01/06/20 04:31 01/06/20 04:31 01/06/20 04:31 01/06/20 04:31 General appearance: Present: no acute distress, well-nourished - EENT Eyes: Present: PERRL, EOM intact - Neck Neck: Present: supple, normal ROM - Respiratory Respiratory effort: normal Respiratory: bilateral: diminished, rhonchi, negative: rales, wheezing - Cardiovascular Rhythm: regular Heart Sounds: Present: S1 & S2 - Extremities Extremities: no ischemia, No edema - Abdominal General gastrointestinal: soft, non-tender, non-distended, normal bowel sounds - Integumentary Integumentary: Present: clear, warm - Psychiatric Psychiatric: appropriate mood/affect, cooperative - Neurologic Neurologic: moves all extremities HEART Score - HEART Score Age: 45-65 Risk factors: 1-2 risk factors - Critical Actions Critical Actions: 0-3 pts:0.9-1.7%risk of adverse cardiac event.Candidate for discharge Results - Labs CBC & Chem 7: 01/03/20 00:22 01/03/20 00:53 Labs: Laboratory Last Values WBC 12.3 K/mm3 (4.5-11.0) H 01/03/20 00:22 RBC 5.22 M/mm3 (3.65-5.03) H 01/03/20 00:22 Hgb 15.4 gm/dl (11.8-15.2) H 01/03/20 00:22 Hct 45.8 % (35.5-45.6) H 01/03/20 00:22 MCV 88 fl (84-94) 01/03/20 00:22 MCH 30 pg (28-32) 01/03/20 00:22 MCHC 34 % (32-34) 01/03/20 00:22 RDW 13.0 % (13.2-15.2) L 01/03/20 00:22 Plt Count 404 K/mm3 (140-440) 01/03/20 00:22 Lymph % (Auto) 5.5 % (13.4-35.0) L 01/03/20 00:22 [place] % (Auto) 9.5 % (0.0-7.3) H 01/03/20 00:22 Eos % (Auto) 1.4 % (0.0-4.3) 01/03/20 00:22 Baso % (Auto) 0.4 % (0.0-1.8) 01/03/20 00:22 Lymph # 0.7 K/mm3 (1.2-5.4) L 01/03/20 00:22 [place] # 1.2 K/mm3 (0.0-0.8) H 01/03/20 00:22 Eos # 0.2 K/mm3 (0.0-0.4) 01/03/20 00:22 Baso # 0.0 K/mm3 (0.0-0.1) 01/03/20 00:22 Seg Neutrophils % 83.2 % (40.0-70.0) H 01/03/20 00:22 Seg Neutrophils # 10.2 K/mm3 (1.8-7.7) H 01/03/20 00:22 D-Dimer 3759.27 ng/mlDDU (0-234) H 01/05/20 13:35 Sodium 133 mmol/L (137-145) L 01/03/20 00:22 Potassium 3.7 mmol/L (3.6-5.0) 01/03/20 00:22 Chloride 93.9 mmol/L (98-107) L 01/03/20 00:22 Carbon Dioxide 25 mmol/L (22-30) 01/03/20 00:22 Anion Gap 18 mmol/L 01/03/20 00:22 BUN 19 mg/dL (9-20) 01/03/20 00:22 Creatinine 0.9 mg/dL (0.8-1.3) 01/03/20 00:22 Estimated GFR > 60 ml/min 01/03/20 00:22 BUN/Creatinine Ratio 21 % 01/03/20 00:22 Glucose 298 mg/dL (75-100) H 01/03/20 00:53 POC Glucose 349 (70-105) H 01/05/20 22:11 Calcium 8.8 mg/dL (8.4-10.2) 01/03/20 00:22 Ferritin 1268.0 ng/mL (30.0-300.0) H 01/05/20 13:35 Total Bilirubin 1.30 mg/dL (0.1-1.2) H 01/03/20 00:22 AST 41 units/L (5-40) H 01/03/20 00:22 ALT 41 units/L (7-56) 01/03/20 00:22 Alkaline Phosphatase 49 units/L (35-129) 01/03/20 00:22 Lactate Dehydrogenase 357 units/L (91-180) H 01/05/20 13:35 C-Reactive Protein 2.30 mg/dL (0.00-1.30) H 01/05/20 13:35 Total Protein 7.8 g/dL (6.3-8.2) 01/03/20 00:22 Albumin 2.9 g/dL (3.9-5) L 01/03/20 00:22 Albumin/Globulin Ratio 0.6 % 01/03/20 00:22 Procalcitonin 0.16 ng/mL (<0.15) 01/03/20 00:53 Coronavirus (PCR) Negative (Negative) 01/03/20 08:18 Microbiology: Microbiology 01/03/20 01:07 Peripheral/Venous Blood Culture - Preliminary NO GROWTH AFTER 72 HOURS 01/03/20 01:44 Peripheral/Venous Blood Culture - Preliminary NO GROWTH AFTER 72 HOURS Nieves/IV: Voiding Method Toilet IV Catheter Type [Right INT / Saline Lock Antecubital] IV Catheter Type [Left Forearm INT / Saline Lock ] Active Medications - Current Medications Current Medications: Generic Name Dose Route Start Last Admin Trade Name Freq PRN Reason Stop Dose Admin Acetaminophen 650 mg 01/03/20 03:52 01/05/20 22:17 Tylenol PO 650 mg Q4H PRN Administration Fever >101 Dexamethasone 6 mg 01/03/20 10:00 01/05/20 10:01 Decadron PO 01/12/20 10:01 6 mg DAILY CYN Administration Dextrose 50 ml 01/03/20 03:56 D50w (25gm) Syringe IV Q30MIN PRN Hypoglycemia Protocol Enoxaparin Sodium 90 mg 01/04/20 22:00 01/05/20 22:19 Enoxaparin 1 mg/kg (90 mg) 90 mg SUB-Q Administration Q12HR CYN Insulin Human Isoph/Insulin Regular 20 unit 01/04/20 19:19 01/05/20 17:23 Humulin 70/30 SUB-Q 20 unit BIDDIAB CYN Administration Insulin Human Regular 0 unit 01/03/20 07:30 01/05/20 17:23 Humulin R SUB-Q 5 unit AC CYN Administration Protocol Insulin Human Regular 0 unit 01/03/20 22:00 01/05/20 22:18 Humulin R SUB-Q 5 unit QHS CYN Administration Protocol Ondansetron HCl 4 mg 01/03/20 03:53 Zofran IV Q8H PRN Nausea And Vomiting Nutrition/Malnutrition Assess - Dietary Evaluation Nutrition/Malnutrition Findings: Nutrition Notes Start: 01/04/20 13:30 Freq: Status: Active Protocol: Document 01/04/20 13:30 LM (Rec: 01/04/20 13:31 LM [id number]) Nutrition Notes Need for Assessment generated from: mammalogist Initial or Follow up Brief Note Subjective/Other Information RN screen for skin risk. Jayjay score is 21. Pt has 100 % intakes in chart. Nutrition Intervention Revisit per MD consult or patient Sign Off request:
[2020-01-06] MEDS: INSULIN REGULAR, HUMAN 100 UNIT/ML 3ML VIAL SUB-Q SCH ×4 (09:35→22:58)
[2020-01-06] MEDS: INSULIN NPH/REGULAR 70/30 INJ SUB-Q SCH ×2 (09:47→17:09)
[2020-01-06] MEDS: DEXAMETHASONE 4 MG TAB PO SCH (09:47)
[2020-01-06] MEDS: ENOXAPARIN 100 MG/1 ML INJ SUB-Q SCH ×2 (09:48→22:57)
[2020-01-07] MEDS: INSULIN REGULAR, HUMAN 100 UNIT/ML 3ML VIAL SUB-Q SCH ×4 (08:16→21:42)
[2020-01-07] MEDS: INSULIN NPH/REGULAR 70/30 INJ SUB-Q SCH ×2 (09:34→18:19)
[2020-01-07] MEDS: DEXAMETHASONE 4 MG TAB PO SCH (09:34)
[2020-01-07] MEDS: ENOXAPARIN 100 MG/1 ML INJ SUB-Q SCH ×2 (09:34→21:41)
--- NOTE | 2020-01-07 11:17 | Progress Note ---
Assessment and Plan Assessment and plan: --High suspicion for COVID/test negative Current Visit: Yes Status: Acute Plan to address problem: However patient has high inflammatory markers Fever and pneumonia ID consulted Continue isolation --Febrile illness; Current Visit: Yes Status: Acute Plan to address problem: due to bilateral pneumonia, call with test negative T-max last 24 hours 101.5 F Follow cultures -- Bilateral pneumonia Current Visit: Yes Status: Acute Plan to address problem: community-acquired pneumonia IV antibiotics, oxygen titrate O2 sats to more than 90% Follow cultures Coronavirus PCR negative -- Acute metabolic encephalopathy Current Visit: Yes Status: Acute Plan to address problem: Probably secondary to fever and sepsis 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 CTA chest mild tortuous thoracic arch, no aneurysm or dissection --DVT prophylaxis Current Visit: Yes Status: Acute Plan to address problem: On Lovenox 40 mg subcu daily and GI prophylaxis, Monitor closely and adjust the management as needed Plan of care reviewed with the patient and his nurse History Interval history: I have seen and examined the patient in isolation room Isolation precautions, PPE protocols followed Patient feels slightly better but anxious to go home Sometimes gets angry and frustrated Vital signs reviewed Hospitalist Physical - Constitutional Vitals: Temp Pulse Resp BP Pulse Ox 98.1 F 101 H 18 139/85 95 01/06/20 21:21 01/07/20 04:15 01/07/20 09:42 01/06/20 21:21 01/07/20 09:42 General appearance: Present: no acute distress, well-nourished - EENT Eyes: Present: PERRL, EOM intact - Neck Neck: Present: supple, normal ROM - Respiratory Respiratory effort: normal Respiratory: bilateral: diminished, negative: rales, rhonchi, wheezing - Cardiovascular Rhythm: regular Heart Sounds: Present: S1 & S2 - Extremities Extremities: no ischemia, No edema - Abdominal General gastrointestinal: soft, non-tender, non-distended, normal bowel sounds - Integumentary Integumentary: Present: clear, warm - Psychiatric Psychiatric: appropriate mood/affect, cooperative - Neurologic Neurologic: moves all extremities HEART Score - HEART Score Age: 45-65 Risk factors: 1-2 risk factors - Critical Actions Critical Actions: 0-3 pts:0.9-1.7%risk of adverse cardiac event.Candidate for discharge Results - Labs CBC & Chem 7: 01/03/20 00:22 01/03/20 00:53 Labs: Laboratory Last Values WBC 12.3 K/mm3 (4.5-11.0) H 01/03/20 00:22 RBC 5.22 M/mm3 (3.65-5.03) H 01/03/20 00:22 Hgb 15.4 gm/dl (11.8-15.2) H 01/03/20 00:22 Hct 45.8 % (35.5-45.6) H 01/03/20 00:22 MCV 88 fl (84-94) 01/03/20 00:22 MCH 30 pg (28-32) 01/03/20 00:22 MCHC 34 % (32-34) 01/03/20 00:22 RDW 13.0 % (13.2-15.2) L 01/03/20 00:22 Plt Count 404 K/mm3 (140-440) 01/03/20 00:22 Lymph % (Auto) 5.5 % (13.4-35.0) L 01/03/20 00:22 [place] % (Auto) 9.5 % (0.0-7.3) H 01/03/20 00:22 Eos % (Auto) 1.4 % (0.0-4.3) 01/03/20 00:22 Baso % (Auto) 0.4 % (0.0-1.8) 01/03/20 00:22 Lymph # 0.7 K/mm3 (1.2-5.4) L 01/03/20 00:22 [place] # 1.2 K/mm3 (0.0-0.8) H 01/03/20 00:22 Eos # 0.2 K/mm3 (0.0-0.4) 01/03/20 00:22 Baso # 0.0 K/mm3 (0.0-0.1) 01/03/20 00:22 Seg Neutrophils % 83.2 % (40.0-70.0) H 01/03/20 00:22 Seg Neutrophils # 10.2 K/mm3 (1.8-7.7) H 01/03/20 00:22 D-Dimer 1542.39 ng/mlDDU (0-234) H 01/07/20 06:14 Sodium 133 mmol/L (137-145) L 01/03/20 00:22 Potassium 3.7 mmol/L (3.6-5.0) 01/03/20 00:22 Chloride 93.9 mmol/L (98-107) L 01/03/20 00:22 Carbon Dioxide 25 mmol/L (22-30) 01/03/20 00:22 Anion Gap 18 mmol/L 01/03/20 00:22 BUN 19 mg/dL (9-20) 01/03/20 00:22 Creatinine 0.9 mg/dL (0.8-1.3) 01/03/20 00:22 Estimated GFR > 60 ml/min 01/03/20 00:22 BUN/Creatinine Ratio 21 % 01/03/20 00:22 Glucose 298 mg/dL (75-100) H 01/03/20 00:53 POC Glucose 120 (70-105) H 01/07/20 08:07 Calcium 8.8 mg/dL (8.4-10.2) 01/03/20 00:22 Ferritin 1203.0 ng/mL (30.0-300.0) H 01/07/20 06:14 Total Bilirubin 1.30 mg/dL (0.1-1.2) H 01/03/20 00:22 AST 41 units/L (5-40) H 01/03/20 00:22 ALT 41 units/L (7-56) 01/03/20 00:22 Alkaline Phosphatase 49 units/L (35-129) 01/03/20 00:22 Lactate Dehydrogenase 357 units/L (91-180) H 01/05/20 13:35 C-Reactive Protein 5.60 mg/dL (0.00-1.30) H 01/07/20 06:14 Total Protein 7.8 g/dL (6.3-8.2) 01/03/20 00:22 Albumin 2.9 g/dL (3.9-5) L 01/03/20 00:22 Albumin/Globulin Ratio 0.6 % 01/03/20 00:22 Procalcitonin 0.16 ng/mL (<0.15) 01/03/20 00:53 Coronavirus (PCR) Negative (Negative) 01/03/20 08:18 Microbiology: Microbiology 01/03/20 01:07 Peripheral/Venous Blood Culture - Preliminary NO GROWTH AFTER 4 DAYS 01/03/20 01:44 Peripheral/Venous Blood Culture - Preliminary NO GROWTH AFTER 4 DAYS Nieves/IV: Voiding Method Toilet IV Catheter Type [Right INT / Saline Lock Antecubital] IV Catheter Type [Left Forearm INT / Saline Lock ] Active Medications - Current Medications Current Medications: Generic Name Dose Route Start Last Admin Trade Name Freq PRN Reason Stop Dose Admin Acetaminophen 650 mg 01/03/20 03:52 01/05/20 22:17 Tylenol PO 650 mg Q4H PRN Administration Fever >101 Dexamethasone 6 mg 01/03/20 10:00 01/07/20 09:34 Decadron PO 01/12/20 10:01 6 mg DAILY CYN Administration Dextrose 50 ml 01/03/20 03:56 D50w (25gm) Syringe IV Q30MIN PRN Hypoglycemia Protocol Enoxaparin Sodium 90 mg 01/04/20 22:00 01/07/20 09:34 Enoxaparin 1 mg/kg (90 mg) 90 mg SUB-Q Administration Q12HR CYN Insulin Human Isoph/Insulin Regular 20 unit 01/04/20 19:19 01/07/20 09:34 Humulin 70/30 SUB-Q 20 unit BIDDIAB CYN Administration Insulin Human Regular 0 unit 01/03/20 07:30 01/07/20 08:16 Humulin R SUB-Q Not Given AC [facility] Protocol Insulin Human Regular 0 unit 01/03/20 22:00 01/06/20 22:58 Humulin R SUB-Q 2 unit QHS CYN Administration Protocol Ondansetron HCl 4 mg 01/03/20 03:53 Zofran IV Q8H PRN Nausea And Vomiting Nutrition/Malnutrition Assess - Dietary Evaluation Nutrition/Malnutrition Findings: Nutrition Notes Start: 01/04/20 13:30 Freq: Status: Active Protocol: Document 01/04/20 13:30 LM (Rec: 01/04/20 13:31 LM [id number]) Nutrition Notes 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 Jayjay score is 21. Pt has 100 % intakes in chart. Nutrition Intervention Revisit per MD consult or patient Sign Off request:
[2020-01-08] MEDS: INSULIN REGULAR, HUMAN 100 UNIT/ML 3ML VIAL SUB-Q SCH ×4 (07:30→22:06)
[2020-01-08] MEDS: INSULIN NPH/REGULAR 70/30 INJ SUB-Q SCH ×2 (08:00→17:21)
[2020-01-08] MEDS: DEXAMETHASONE 4 MG TAB PO SCH (09:40)
[2020-01-08] MEDS: ENOXAPARIN 100 MG/1 ML INJ SUB-Q SCH ×2 (09:42→21:05)
--- NOTE | 2020-01-08 10:55 | Progress Note ---
Assessment and Plan Assessment and plan: --High suspicion for COVID/test negative Current Visit: Yes Status: Acute Plan to address problem: However patient has high inflammatory markers Fever and pneumonia ID consulted Continue isolation --Febrile illness; Current Visit: Yes Status: Acute Plan to address problem: due to bilateral pneumonia, call with test negative T-max last 24 hours 101.5 F Follow cultures --Severe COVID bilateral pneumonia Current Visit: Yes Status: Acute Plan to address problem: community-acquired pneumonia IV antibiotics, oxygen titrate O2 sats to more than 90% Follow cultures Coronavirus PCR negative -- Acute metabolic encephalopathy Current Visit: Yes Status: Acute Plan to address problem: Probably secondary to fever and sepsis 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 CTA chest mild tortuous thoracic arch, no aneurysm or dissection --DVT prophylaxis Current Visit: Yes Status: Acute Plan to address problem: On Lovenox 40 mg subcu daily and GI prophylaxis, Monitor closely and adjust the management as needed Plan of care reviewed with the patient and his nurse History Interval history: PPE conservation, limited examination Patient's medical records reviewed Agreed with the nurses note and charting Vital signs noted Hospitalist Physical - Constitutional Vitals: Temp Pulse Resp BP Pulse Ox 98.7 F 53 L 20 118/63 100 01/08/20 07:04 01/08/20 07:04 01/08/20 07:04 01/08/20 07:04 01/08/20 10:42 General appearance: Present: no acute distress, well-nourished - EENT ENT: other (PPE conservation) - Neck Neck: Present: other (PPI preservation) - Respiratory Respiratory effort: other (PPE preservation) - Cardiovascular Rhythm: other (PPE preservation) - Extremities Extremity abnormal: other (PPE preservation) - Abdominal General gastrointestinal: other (PPE preservation) - Psychiatric Psychiatric: other (PPE preservation) - Neurologic Neurologic: other (PPE preservation) HEART Score - HEART Score Age: 45-65 Risk factors: 1-2 risk factors - Critical Actions Critical Actions: 0-3 pts:0.9-1.7%risk of adverse cardiac event.Candidate for discharge Results - Labs CBC & Chem 7: 01/03/20 00:22 01/03/20 00:53 Labs: Laboratory Last Values WBC 12.3 K/mm3 (4.5-11.0) H 01/03/20 00:22 RBC 5.22 M/mm3 (3.65-5.03) H 01/03/20 00:22 Hgb 15.4 gm/dl (11.8-15.2) H 01/03/20 00:22 Hct 45.8 % (35.5-45.6) H 01/03/20 00:22 MCV 88 fl (84-94) 01/03/20 00: MCH 30 pg (28-32) 01/03/20 00:22 MCHC 34 % (32-34) 01/03/20 00:22 RDW 13.0 % (13.2-15.2) L 01/03/20 00:22 Plt Count 404 K/mm3 (140-440) 01/03/20 00:22 Lymph % (Auto) 5.5 % (13.4-35.0) L 01/03/20 00:22 [place] % (Auto) 9.5 % (0.0-7.3) H 01/03/20 00:22 Eos % (Auto) 1.4 % (0.0-4.3) 01/03/20 00:22 Baso % (Auto) 0.4 % (0.0-1.8) 01/03/20 00:22 Lymph # 0.7 K/mm3 (1.2-5.4) L 01/03/20 00:22 [place] # 1.2 K/mm3 (0.0-0.8) H 01/03/20 00:22 Eos # 0.2 K/mm3 (0.0-0.4) 01/03/20 00:22 Baso # 0.0 K/mm3 (0.0-0.1) 01/03/20 00:22 Seg Neutrophils % 83.2 % (40.0-70.0) H 01/03/20 00:22 Seg Neutrophils # 10.2 K/mm3 (1.8-7.7) H 01/03/20 00:22 D-Dimer 1542.39 ng/mlDDU (0-234) H 01/07/20 06:14 Sodium 133 mmol/L (137-145) L 01/03/20 00:22 Potassium 3.7 mmol/L (3.6-5.0) 01/03/20 00:22 Chloride 93.9 mmol/L (98-107) L 01/03/20 00:22 Carbon Dioxide 25 mmol/L (22-30) 01/03/20 00:22 Anion Gap 18 mmol/L 01/03/20 00:22 BUN 19 mg/dL (9-20) 01/03/20 00:22 Creatinine 0.9 mg/dL (0.8-1.3) 01/03/20 00:22 Estimated GFR > 60 ml/min 01/03/20 00:22 BUN/Creatinine Ratio 21 % 01/03/20 00:22 Glucose 298 mg/dL (75-100) H 01/03/20 00:53 POC Glucose 138 (70-105) H 01/08/20 09:50 Calcium 8.8 mg/dL (8.4-10.2) 01/03/20 00:22 Ferritin 1203.0 ng/mL (30.0-300.0) H 01/07/20 06:14 Total Bilirubin 1.30 mg/dL (0.1-1.2) H 01/03/20 00:22 AST 41 units/L (5-40) H 01/03/20 00:22 ALT 41 units/L (7-56) 01/03/20 00:22 Alkaline Phosphatase 49 units/L (35-129) 01/03/20 00:22 Lactate Dehydrogenase 357 units/L (91-180) H 01/05/20 13:35 C-Reactive Protein 5.60 mg/dL (0.00-1.30) H 01/07/20 06:14 Total Protein 7.8 g/dL (6.3-8.2) 01/03/20 00:22 Albumin 2.9 g/dL (3.9-5) L 01/03/20 00:22 Albumin/Globulin Ratio 0.6 % 01/03/20 00:22 Procalcitonin 0.16 ng/mL (<0.15) 01/03/20 00:53 Coronavirus (PCR) Negative (Negative) 01/03/20 08:18 Microbiology: Microbiology 01/03/20 01:07 Peripheral/Venous Blood Culture - Final NO GROWTH AFTER 5 DAYS 01/03/20 01:44 Peripheral/Venous Blood Culture - Final NO GROWTH AFTER 5 DAYS Nieves/IV: Voiding Method Toilet IV Catheter Type [Right INT / Saline Lock Antecubital] IV Catheter Type [Left Forearm INT / Saline Lock ] Active Medications - Current Medications Current Medications: Generic Name Dose Route Start Last Admin Trade Name Freq PRN Reason Stop Dose Admin Acetaminophen 650 mg 01/03/20 03:52 01/05/20 22:17 Tylenol PO 650 mg Q4H PRN Administration Fever >101 Dexamethasone 6 mg 01/03/20 10:00 01/08/20 09:40 Decadron PO 01/12/20 10:01 6 mg DAILY CYN Administration Dextrose 50 ml 01/03/20 03:56 D50w (25gm) Syringe IV Q30MIN PRN Hypoglycemia Protocol Enoxaparin Sodium 90 mg 01/04/20 22:00 01/08/20 09:42 Enoxaparin 1 mg/kg (90 mg) 90 mg SUB-Q Administration Q12HR CYN Insulin Human Isoph/Insulin Regular 20 unit 01/04/20 19:19 01/08/20 08:00 Humulin 70/30 SUB-Q 20 unit BIDDIAB CYN Administration Insulin Human Regular 0 unit 01/03/20 07:30 01/08/20 07:30 Humulin R SUB-Q Not Given AC CYN Protocol Insulin Human Regular 0 unit 01/03/20 22:00 01/07/20 21:42 Humulin R SUB-Q 3 unit QHS CYN Administration Protocol Ondansetron HCl 4 mg 01/03/20 03:53 Zofran IV Q8H PRN Nausea And Vomiting Nutrition/Malnutrition Assess - Dietary Evaluation Nutrition/Malnutrition Findings: Nutrition Notes Start: 01/04/20 13:30 Freq: Status: Active Protocol: Document 01/04/20 13:30 LM (Rec: 01/04/20 13:31 LM [id number]) Nutrition Notes 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 Jayjay score is 21. Pt has 100 % intakes in chart. Nutrition Intervention Revisit per MD consult or patient Sign Off request:
--- NOTE | 2020-01-08 14:24 | Progress Note ---
Assessment and Plan Cultures: Blood culture negative COVID PCR 12/25/2019 positive (outpatient) COVID PCR 01/03/2020 negative Assessment: 59 years old male with history of diabetes, admitted 01/03/2020 due to 2-week history of body ache, malaise, fever, chills, dry cough and progressive shortness of breath: #Severe sepsis: likely due to bilateral pneumonia. #Severe COVID pneumonia: Chest x-ray with diffuse bilateral infiltrates. Inflammatory markers are very high, likely cytokine storm. Very high d-dimer 4938, risk for venous thromboembolism. COVID PCR 01/03/2020 negative. Initial COVID PCR 12/25/2019+ as an outpatient. #Acute hypoxemic respiratory failure: currently NC 2L sats 93% #Elevated LFTs: Mild, from COVID #Diabetes mellitus: Recommendations: -continue Dexamethasone 6 mg IV/PO daily for 10 days, Day 5 -doubt any benefit with Remdesivir at this stage (test was positive several days ago plus repeat negative here) -Monitor inflammatory markers - ferritin, Ddimer, CRP, LDH -Continue anticoagulation per protocol based on d-dimer Samuel Patton MD, FACP [facility] C: [phone] O: [phone] F: [phone] Subjective Date of service: 01/08/20 Principal diagnosis: COVID Interval history: No fever. Oxygen requirements up to 4 L. Room air pulse oximetry 84%, room air exercise pulse oximetry 76%. Objective - Exam Narrative Exam: Physical Exam (reviewed in chart due to PPE conservation) Constitutional: limited due to PPE conservation strategy Head, Ears, Nose: limited due to PPE conservation strategy Eyes: limited due to PPE conservation strategy Neck: limited due to PPE conservation strategy Oral: limited due to PPE conservation strategy Cardiovascular: limited due to PPE conservation strategy Respiratory: limited due to PPE conservation strategy GI: limited due to PPE conservation strategy Musculoskeletal: limited due to PPE conservation strategy Skin: limited due to PPE conservation strategy Hem/Lymphatic: limited due to PPE conservation strategy Psych: limited due to PPE conservation strategy Neurological: limited due to PPE conservation strategy - Constitutional Vitals: Vital Signs Temp Pulse Resp BP Pulse Ox 98.7 F 53 L 20 118/63 100 01/08/20 07:04 01/08/20 07:04 01/08/20 07:04 01/08/20 07:04 01/08/20 10:42 Temperature -Last 24 Hours Temperature 98.7 F Temperature 98.5 F Temperature 98.4 F - Labs CBC & Chem 7: 01/03/20 00:22 01/03/20 00:53 Labs: Abnormal lab results 01/07/20 01/07/20 01/08/20 Range/Units 16:14 21:56 09:50 POC Glucose 329 H 269 H 138 H (70-105) 01/08/20 Range/Units 13:10 POC Glucose 195 H (70-105)
[2020-01-08] MEDS: METOPROLOL TARTRATE 25 MG TAB PO SCH (21:04)
[2020-01-09] MEDS: INSULIN REGULAR, HUMAN 100 UNIT/ML 3ML VIAL SUB-Q SCH ×4 (09:23→21:54)
[2020-01-09] MEDS: INSULIN NPH/REGULAR 70/30 INJ SUB-Q SCH ×2 (09:27→18:33)
[2020-01-09] MEDS: ENOXAPARIN 100 MG/1 ML INJ SUB-Q SCH ×2 (10:42→21:53)
[2020-01-09] MEDS: DEXAMETHASONE 4 MG TAB PO SCH (10:43)
[2020-01-09] MEDS: METOPROLOL TARTRATE 25 MG TAB PO SCH ×2 (10:59→21:54)
--- NOTE | 2020-01-09 14:02 | Progress Note ---
Assessment and Plan Assessment and plan: --COVID +ve 8 at the urgent care center COVID/test negative 01/03/2020 in the hospital Current Visit: Yes Status: Acute Plan to address problem: Trend high inflammatory markers Continue dexamethasone 6 mg total 10 days Anticoagulation with Lovenox No need for Remdesivir Elevated D-dimers; anticoagulation with Lovenox Home oxygen --Febrile illness; Current Visit: Yes Status: Acute Plan to address problem: Present on admission due to bilateral pneumonia, resolved --Severe COVID bilateral pneumonia Current Visit: Yes Status: Acute Plan to address problem: community-acquired pneumonia IV antibiotics, oxygen titrate O2 sats to more than 90% Follow cultures Coronavirus PCR negative --Type 2 diabetes mellitus; Accu-Chek sliding scale coverage ADA diet insulin -- Acute metabolic encephalopathy Current Visit: Yes Status: Acute Plan to address problem: Probably secondary to fever and sepsis. 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 CTA chest mild tortuous thoracic arch, no aneurysm or dissection --DVT prophylaxis Current Visit: Yes Status: Acute Plan to address problem: On Lovenox 40 mg subcu daily and GI prophylaxis, Monitor closely and adjust the management as needed Plan of care discussed with the patient and his nurse Possible discharge in 1 to 2 days if stable and cleared by ID Patient does not like the food in the hospital I advised him that his family could bring the food to the emergency room and the nurse or tech from the floor will go and pick it for him History Interval history: I have seen and examined the patient in isolated room Isolation precautions, PPE protocols observed Patient feels slightly better was hypoxic, case management set up home oxygen Patient complains of generalized weakness Vital signs reviewed Hospitalist Physical - Constitutional Vitals: Temp Pulse Resp BP Pulse Ox 98.2 F 93 H 20 137/84 98 01/09/20 05:47 01/09/20 10:59 01/09/20 05:47 01/09/20 10:59 01/09/20 05:47 General appearance: Present: no acute distress, well-nourished - EENT Eyes: Present: PERRL, EOM intact - Neck Neck: Present: supple, normal ROM - Respiratory Respiratory effort: normal Respiratory: bilateral: diminished, rhonchi, negative: rales, wheezing - Cardiovascular Rhythm: irregularly irregular Heart Sounds: Present: S1 & S2 - Extremities Extremities: no ischemia, pulses intact - Abdominal General gastrointestinal: soft, non-tender, non-distended, normal bowel sounds - Integumentary Integumentary: Present: clear, warm - Psychiatric Psychiatric: appropriate mood/affect, cooperative - Neurologic Neurologic: CNII-XII intact, focal deficits HEART Score - HEART Score Age: 45-65 Risk factors: 1-2 risk factors - Critical Actions Critical Actions: 0-3 pts:0.9-1.7%risk of adverse cardiac event.Candidate for discharge Results - Labs CBC & Chem 7: 01/03/20 00:22 01/03/20 00:53 Labs: Laboratory Last Values WBC 12.3 K/mm3 (4.5-11.0) H 01/03/20 00:22 RBC 5.22 M/mm3 (3.65-5.03) H 01/03/20 00:22 Hgb 15.4 gm/dl (11.8-15.2) H 01/03/20 00:22 Hct 45.8 % (35.5-45.6) H 01/03/20 00:22 MCV 88 fl (84-94) 01/03/20 00:22 MCH 30 pg (28-32) 01/03/20 00:22 MCHC 34 % (32-34) 01/03/20 00:22 RDW 13.0 % (13.2-15.2) L 01/03/20 00:22 Plt Count 404 K/mm3 (140-440) 01/03/20 00:22 Lymph % (Auto) 5.5 % (13.4-35.0) L 01/03/20 00:22 [place] % (Auto) 9.5 % (0.0-7.3) H 01/03/20 00:22 Eos % (Auto) 1.4 % (0.0-4.3) 01/03/20 00:22 Baso % (Auto) 0.4 % (0.0-1.8) 01/03/20 00:22 Lymph # 0.7 K/mm3 (1.2-5.4) L 01/03/20 00:22 [place] # 1.2 K/mm3 (0.0-0.8) H 01/03/20 00:22 Eos # 0.2 K/mm3 (0.0-0.4) 01/03/20 00:22 Baso # 0.0 K/mm3 (0.0-0.1) 01/03/20 00:22 Seg Neutrophils % 83.2 % (40.0-70.0) H 01/03/20 00:22 Seg Neutrophils # 10.2 K/mm3 (1.8-7.7) H 01/03/20 00:22 D-Dimer 697.97 ng/mlDDU (0-234) H 01/09/20 08:26 Sodium 133 mmol/L (137-145) L 01/03/20 00:22 Potassium 3.7 mmol/L (3.6-5.0) 01/03/20 00:22 Chloride 93.9 mmol/L (98-107) L 01/03/20 00:22 Carbon Dioxide 25 mmol/L (22-30) 01/03/20 00:22 Anion Gap 18 mmol/L 01/03/20 00:22 BUN 19 mg/dL (9-20) 01/03/20 00:22 Creatinine 0.9 mg/dL (0.8-1.3) 01/03/20 00:22 Estimated GFR > 60 ml/min 01/03/20 00:22 BUN/Creatinine Ratio 21 % 01/03/20 00:22 Glucose 298 mg/dL (75-100) H 01/03/20 00:53 POC Glucose 82 (70-105) 01/09/20 08:16 Calcium 8.8 mg/dL (8.4-10.2) 01/03/20 00:22 Ferritin 1105.0 ng/mL (30.0-300.0) H 01/09/20 08:26 Total Bilirubin 1.30 mg/dL (0.1-1.2) H 01/03/20 00:22 AST 41 units/L (5-40) H 01/03/20 00:22 ALT 41 units/L (7-56) 01/03/20 00:22 Alkaline Phosphatase 49 units/L (35-129) 01/03/20 00:22 Lactate Dehydrogenase 357 units/L (91-180) H 01/05/20 13:35 C-Reactive Protein 7.70 mg/dL (0.00-1.30) H 01/09/20 08:26 Total Protein 7.8 g/dL (6.3-8.2) 01/03/20 00:22 Albumin 2.9 g/dL (3.9-5) L 01/03/20 00:22 Albumin/Globulin Ratio 0.6 % 01/03/20 00:22 Procalcitonin 0.16 ng/mL (<0.15) 01/03/20 00:53 Coronavirus (PCR) Negative (Negative) 01/03/20 08:18 Nieves/IV: Voiding Method Toilet IV Catheter Type [Right INT / Saline Lock Antecubital] IV Catheter Type [Left Forearm INT / Saline Lock ] Active Medications - Current Medications Current Medications: Generic Name Dose Route Start Last Admin Trade Name Freq PRN Reason Stop Dose Admin Acetaminophen 650 mg 01/03/20 03:52 01/05/20 22:17 Tylenol PO 650 mg Q4H PRN Administration Fever >101 Dexamethasone 6 mg 01/03/20 10:00 01/09/20 10:43 Decadron PO 01/12/20 10:01 6 mg DAILY CYN Administration Dextrose 50 ml 01/03/20 03:56 D50w (25gm) Syringe IV Q30MIN PRN Hypoglycemia Protocol Enoxaparin Sodium 90 mg 01/04/20 22:00 01/09/20 10:42 Enoxaparin 1 mg/kg (90 mg) 90 mg SUB-Q Administration Q12HR [facility] Insulin Human Isoph/Insulin Regular 20 unit 01/04/20 19:19 01/09/20 09:27 Humulin 70/30 SUB-Q Not Given BIDDIAB CYN Insulin Human Regular 0 unit 01/03/20 07:30 01/09/20 12:44 Humulin R SUB-Q Not Given AC CYN Protocol Insulin Human Regular 0 unit 01/03/20 22:00 01/08/20 22:06 Humulin R SUB-Q 3 unit QHS CYN Administration Protocol Metoprolol Tartrate 12.5 mg 01/08/20 22:00 01/09/20 10:59 Metoprolol PO 12.5 mg BID CYN Administration Ondansetron HCl 4 mg 01/03/20 03:53 Zofran IV Q8H PRN Nausea And Vomiting Nutrition/Malnutrition Assess - Dietary Evaluation Nutrition/Malnutrition Findings: Nutrition Notes Start: 01/04/20 13:30 Freq: Status: Active Protocol: Document 01/04/20 13:30 LM (Rec: 01/04/20 13:31 LM [id number]) Nutrition 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 Jayjay score is 21. Pt has 100 % intakes in chart. Nutrition Intervention Revisit per MD consult or patient Sign Off request:
--- NOTE | 2020-01-09 14:35 | Progress Note ---
Assessment and Plan Cultures: Blood culture negative COVID PCR 12/25/2019 positive (outpatient) COVID PCR 01/03/2020 negative Assessment: 59 years old male with history of diabetes, admitted 01/03/2020 due to 2-week history of body ache, malaise, fever, chills, dry cough and progressive shortness of breath: #Severe sepsis: likely due to bilateral pneumonia. #Severe COVID pneumonia: Chest x-ray with diffuse bilateral infiltrates. Inflammatory markers are very high, likely cytokine storm. Very high d-dimer 4938, risk for venous thromboembolism. COVID PCR 01/03/2020 negative. Initial COVID PCR 12/25/2019+ as an outpatient. #Acute hypoxemic respiratory failure: currently NC 2L sats 93% #Elevated LFTs: Mild, from COVID #Diabetes mellitus: Recommendations: -continue Dexamethasone 6 mg IV/PO daily for 10 days, Day 6 -doubt any benefit with Remdesivir at this stage (test was positive several days ago plus repeat negative here) -markers improving. Eval and arrange for home oxygen upon discharge with PCP follow up Samuel Patton MD, FACP [facility] C: [phone] O: [phone] F: [phone] Subjective Date of service: 01/09/20 Principal diagnosis: COVID Interval history: No fever. Oxygen requirements down to 3 L/min. Objective - Exam Narrative Exam: Physical Exam (reviewed in chart due to PPE conservation) Constitutional: limited due to PPE conservation strategy Head, Ears, Nose: limited due to PPE conservation strategy Eyes: limited due to PPE conservation strategy Neck: limited due to PPE conservation strategy Oral: limited due to PPE conservation strategy Cardiovascular: limited due to PPE conservation strategy Respiratory: limited due to PPE conservation strategy GI: limited due to PPE conservation strategy Musculoskeletal: limited due to PPE conservation strategy Skin: limited due to PPE conservation strategy Hem/Lymphatic: limited due to PPE conservation strategy Psych: limited due to PPE conservation strategy Neurological: limited due to PPE conservation strategy - Constitutional Vitals: Vital Signs Temp Pulse Resp BP Pulse Ox 98.2 F 93 H 20 137/84 98 01/09/20 05:47 01/09/20 10:59 01/09/20 05:47 01/09/20 10:59 01/09/20 05:47 Temperature -Last 24 Hours Temperature 98.2 F Temperature 97.9 F - Labs CBC & Chem 7: 01/03/20 00:22 01/03/20 00:53 Labs: Abnormal lab results 01/08/20 01/08/20 01/09/20 Range/Units 17:16 22:06 08:26 D-Dimer 697.97 H (0-234) ng/mlDDU POC Glucose 354 H 267 H (70-105) Ferritin (30.0-300.0) ng/mL C-Reactive Protein (0.00-1.30) mg/dL 01/09/20 01/09/20 Range/Units 08:26 08:26 D-Dimer (0-234) ng/mlDDU POC Glucose (70-105) Ferritin 1105.0 H (30.0-300.0) ng/mL C-Reactive Protein 7.70 H (0.00-1.30) mg/dL
[2020-01-10] MEDS: INSULIN REGULAR, HUMAN 100 UNIT/ML 3ML VIAL SUB-Q SCH ×4 (08:48→23:20)
[2020-01-10] MEDS: INSULIN NPH/REGULAR 70/30 INJ SUB-Q SCH ×2 (08:50→18:15)
[2020-01-10] MEDS: ENOXAPARIN 100 MG/1 ML INJ SUB-Q SCH ×2 (10:27→23:20)
[2020-01-10] MEDS: DEXAMETHASONE 4 MG TAB PO SCH (10:27)
[2020-01-10] MEDS: METOPROLOL TARTRATE 25 MG TAB PO SCH ×2 (10:29→23:20)
--- NOTE | 2020-01-10 13:32 | Progress Note ---
Assessment and Plan Cultures: Blood culture negative COVID PCR 12/25/2019 positive (outpatient) COVID PCR 01/03/2020 negative Assessment: 59 years old male with history of diabetes, admitted 01/03/2020 due to 2-week history of body ache, malaise, fever, chills, dry cough and progressive shortness of breath: #Severe sepsis: likely due to bilateral pneumonia. #Severe COVID pneumonia: Chest x-ray with diffuse bilateral infiltrates. Inflammatory markers are very high, likely cytokine storm. Very high d-dimer 4938, risk for venous thromboembolism. COVID PCR 01/03/2020 negative. Initial COVID PCR 12/25/2019+ as an outpatient. doubt any benefit with Remdesivir at this stage (test was positive several days ago plus repeat negative here) #Acute hypoxemic respiratory failure: currently NC 3L sats 98% #Elevated LFTs: Mild, from COVID #Diabetes mellitus: Recommendations: -continue Dexamethasone 6 mg IV/PO daily for 10 days, Day 7 -wean oxygen as tolerated and eval / arrange for home oxygen with PCP follow up Samuel Patton MD, FACP [facility] ([facility] C: [phone] O: [phone] F: [phone] Subjective Date of service: 01/10/20 Principal diagnosis: COVID Interval history: No fever. Oxygen requirements stable at 3 L/min. Objective - Exam Narrative Exam: Physical Exam (reviewed in chart due to PPE conservation) Constitutional: limited due to PPE conservation strategy Head, Ears, Nose: limited due to PPE conservation strategy Eyes: limited due to PPE conservation strategy Neck: limited due to PPE conservation strategy Oral: limited due to PPE conservation strategy Cardiovascular: limited due to PPE conservation strategy Respiratory: limited due to PPE conservation strategy GI: limited due to PPE conservation strategy Musculoskeletal: limited due to PPE conservation strategy Skin: limited due to PPE conservation strategy Hem/Lymphatic: limited due to PPE conservation strategy Psych: limited due to PPE conservation strategy Neurological: limited due to PPE conservation strategy - Constitutional Vitals: Vital Signs Temp Pulse Resp BP Pulse Ox 97.3 F L 93 H 18 113/70 98 01/10/20 03:22 01/10/20 10:29 01/10/20 03:22 01/10/20 10:29 08/19/20 08:53 Temperature -Last 24 Hours Temperature 97.3 F Temperature 97.8 F Temperature 97.5 F - Labs CBC & Chem 7: 01/03/20 00:22 01/03/20 00:53 Labs: Abnormal lab results 01/09/20 01/09/20 01/09/20 Range/Units 12:04 16:51 21:28 POC Glucose 140 H 326 H 404 H (70-105) 01/10/20 01/10/20 Range/Units 08:18 12:01 POC Glucose 143 H 228 H (70-105)
--- NOTE | 2020-01-10 17:18 | Progress Note ---
Assessment and Plan Assessment and plan: --COVID +ve 8 at the urgent care center COVID/test negative 01/03/2020 in the hospital Current Visit: Yes Status: Acute Plan to address problem: Trend high inflammatory markers Continue dexamethasone 6 mg total 10 days Anticoagulation with Lovenox No need for Remdesivir Elevated D-dimers; anticoagulation with Lovenox Home oxygen is set up --Severe COVID bilateral pneumonia Current Visit: Yes Status: Acute Plan to address problem: community-acquired pneumonia IV antibiotics, oxygen titrate O2 sats to more than 90% Follow cultures Coronavirus PCR negative --Febrile illness; Current Visit: Yes Status: Acute Plan to address problem: Present on admission due to bilateral pneumonia, resolved --Type 2 diabetes mellitus; Accu-Chek sliding scale coverage ADA diet insulin -- Acute metabolic encephalopathy Current Visit: Yes Status: Acute Plan to address problem: Probably secondary to fever and sepsis. 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 Possible discharge home tomorrow if stable History Interval history: I have seen and examined the patient at the bedside this morning Isolation precautions PPE protocols observed Patient feels slightly better anxious to go home Had criteria for home oxygen, CM has arranged home O2 Patient denies chest pain has mild shortness of breath Vital signs reviewed Hospitalist Physical - Physical exam Narrative exam: Patient examined from a distance due to PPE conservation - Constitutional Vitals: Temp Pulse Resp BP Pulse Ox 97.2 F L 87 22 113/71 89 01/10/20 11:45 01/10/20 11:45 01/10/20 11:45 01/10/20 11:45 01/10/20 11:45 General appearance: Present: no acute distress, well-nourished - EENT Eyes: Present: PERRL, EOM intact ENT: other (PPE preservation) - Neck Neck: Present: supple, normal ROM, other (PPE conservation) - Respiratory Respiratory effort: normal, other (PPE conservation) Respiratory: bilateral: diminished, negative: rales, rhonchi, wheezing - Cardiovascular Rhythm: regular (PPE conservation) Heart Sounds: Present: S1 & S2 - Extremities Extremities: no ischemia, No edema Extremity abnormal: other (PPE conservation) - Abdominal General gastrointestinal: soft, non-tender, non-distended, normal bowel sounds, other (PPE conservation) - Integumentary Integumentary: Present: clear, warm - Psychiatric Psychiatric: appropriate mood/affect - Neurologic Neurologic: moves all extremities HEART Score - HEART Score Age: 45-65 Risk factors: 1-2 risk factors - Critical Actions Critical Actions: 0-3 pts:0.9-1.7%risk of adverse cardiac event.Candidate for discharge Results - Labs CBC & Chem 7: 01/03/20 00:22 01/03/20 00:53 Labs: Laboratory Last Values WBC 12.3 K/mm3 (4.5-11.0) H 01/03/20 00:22 RBC 5.22 M/mm3 (3.65-5.03) H 01/03/20 00:22 Hgb 15.4 gm/dl (11.8-15.2) H 01/03/20 00:22 Hct 45.8 % (35.5-45.6) H 01/03/20 00:22 MCV 88 fl (84-94) 01/03/20 00:22 MCH 30 pg (28-32) 01/03/20 00:22 MCHC 34 % (32-34) 01/03/20 00:22 RDW 13.0 % (13.2-15.2) L 01/03/20 00:22 Plt Count 404 K/mm3 (140-440) 01/03/20 00:22 Lymph % (Auto) 5.5 % (13.4-35.0) L 01/03/20 00:22 [place] % (Auto) 9.5 % (0.0-7.3) H 01/03/20 00:22 Eos % (Auto) 1.4 % (0.0-4.3) 01/03/20 00:22 Baso % (Auto) 0.4 % (0.0-1.8) 01/03/20 00:22 Lymph # 0.7 K/mm3 (1.2-5.4) L 01/03/20 00:22 [place] # 1.2 K/mm3 (0.0-0.8) H 01/03/20 00:22 Eos # 0.2 K/mm3 (0.0-0.4) 01/03/20 00:22 Baso # 0.0 K/mm3 (0.0-0.1) 01/03/20 00:22 Seg Neutrophils % 83.2 % (40.0-70.0) H 01/03/20 00:22 Seg Neutrophils # 10.2 K/mm3 (1.8-7.7) H 01/03/20 00:22 D-Dimer 697.97 ng/mlDDU (0-234) H 01/09/20 08:26 Sodium 133 mmol/L (137-145) L 01/03/20 00:22 Potassium 3.7 mmol/L (3.6-5.0) 01/03/20 00:22 Chloride 93.9 mmol/L (98-107) L 01/03/20 00:22 Carbon Dioxide 25 mmol/L (22-30) 01/03/20 00:22 Anion Gap 18 mmol/L 01/03/20 00:22 BUN 19 mg/dL (9-20) 01/03/20 00:22 Creatinine 0.9 mg/dL (0.8-1.3) 01/03/20 00:22 Estimated GFR > 60 ml/min 01/03/20 00:22 BUN/Creatinine Ratio 21 % 01/03/20 00:22 Glucose 298 mg/dL (75-100) H 01/03/20 00:53 POC Glucose 228 (70-105) H 01/10/20 12:01 Calcium 8.8 mg/dL (8.4-10.2) 01/03/20 00:22 Ferritin 1105.0 ng/mL (30.0-300.0) H 01/09/20 08:26 Total Bilirubin 1.30 mg/dL (0.1-1.2) H 01/03/20 00:22 AST 41 units/L (5-40) H 01/03/20 00:22 ALT 41 units/L (7-56) 01/03/20 00:22 Alkaline Phosphatase 49 units/L (35-129) 01/03/20 00:22 Lactate Dehydrogenase 357 units/L (91-180) H 01/05/20 13:35 C-Reactive Protein 7.70 mg/dL (0.00-1.30) H 01/09/20 08:26 Total Protein 7.8 g/dL (6.3-8.2) 01/03/20 00:22 Albumin 2.9 g/dL (3.9-5) L 01/03/20 00:22 Albumin/Globulin Ratio 0.6 % 01/03/20 00:22 Procalcitonin 0.16 ng/mL (<0.15) 01/03/20 00:53 Coronavirus (PCR) Negative (Negative) 01/03/20 08:18 Nieves/IV: Voiding Method Toilet IV Catheter Type [Right INT / Saline Lock Antecubital] IV Catheter Type [Left Forearm INT / Saline Lock ] Active Medications - Current Medications Current Medications: Generic Name Dose Route Start Last Admin Trade Name Freq PRN Reason Stop Dose Admin Acetaminophen 650 mg 01/03/20 03:52 01/05/20 22:17 Tylenol PO 650 mg Q4H PRN Administration Fever >101 Dexamethasone 6 mg 01/03/20 10:00 01/10/20 10:27 Decadron PO 01/12/20 10:01 6 mg DAILY CYN Administration Dextrose 50 ml 01/03/20 03:56 D50w (25gm) Syringe IV Q30MIN PRN Hypoglycemia Protocol Enoxaparin Sodium 90 mg 01/04/20 22:00 01/10/20 10:27 Enoxaparin 1 mg/kg (90 mg) 90 mg SUB-Q Administration Q12HR CYN Insulin Human Isoph/Insulin Regular 20 unit 01/04/20 19:19 01/10/20 08:50 Humulin 70/30 SUB-Q Not Given BIDDIAB CYN Insulin Human Regular 0 unit 01/03/20 07:30 01/10/20 12:49 Humulin R SUB-Q 2 unit AC CYN Administration Protocol Insulin Human Regular 0 unit 01/03/20 22:00 01/09/20 21:54 Humulin R SUB-Q 5 unit QHS CYN Administration Protocol Metoprolol Tartrate 12.5 mg 01/08/20 22:00 01/10/20 10:29 Metoprolol PO 12.5 mg BID CYN Administration Ondansetron HCl 4 mg 01/03/20 03:53 Zofran IV Q8H PRN Nausea And Vomiting Nutrition/Malnutrition Assess - Dietary Evaluation Nutrition/Malnutrition Findings: Nutrition Notes Start: 01/04/20 13:30 Freq: Status: Active Protocol: Document 01/10/20 14:51 LM (Rec: 01/10/20 14:51 LM [id number]) Nutrition Notes Need for Assessment generated from: LOS Initial or Follow up Brief Note Subjective/Other Information Screen for LOS. Pt with 75-100 % intakes in chart. Nutrition Intervention Revisit per MD consult or patient Sign Off request:
[2020-01-11] MEDS: METOPROLOL TARTRATE 25 MG TAB PO SCH (10:22)
[2020-01-11] MEDS: ENOXAPARIN 100 MG/1 ML INJ SUB-Q SCH (10:22)
[2020-01-11] MEDS: INSULIN NPH/REGULAR 70/30 INJ SUB-Q SCH ×2 (10:23→17:50)
[2020-01-11] MEDS: DEXAMETHASONE 4 MG TAB PO SCH (10:23)
[2020-01-11] MEDS: INSULIN REGULAR, HUMAN 100 UNIT/ML 3ML VIAL SUB-Q SCH ×3 (10:26→17:00)
--- NOTE | 2020-01-11 13:18 | Progress Note ---
Assessment and Plan Cultures: Blood culture negative COVID PCR 12/25/2019 positive (outpatient) COVID PCR 01/03/2020 negative Assessment: 59 years old male with history of diabetes, admitted 01/03/2020 due to 2-week history of body ache, malaise, fever, chills, dry cough and progressive shortness of breath: #Severe sepsis: likely due to bilateral pneumonia. #Severe COVID pneumonia: Chest x-ray with diffuse bilateral infiltrates. Inflammatory markers are very high, likely cytokine storm. Very high d-dimer 4938 on admission which has steadily improved. COVID PCR 01/03/2020 negative. Initial COVID PCR 12/25/2019+ as an outpatient. doubt any benefit with Remdesivir at this stage (test was positive several days ago plus repeat negative here) #Acute hypoxemic respiratory failure: stable, on nasal cannula. #Elevated LFTs: Mild, from COVID #Diabetes mellitus: Recommendations: -continue Dexamethasone 6 mg IV/PO daily for 10 days, Day 9 today -wean oxygen as tolerated and eval / arrange for home oxygen with PCP follow up Samuel Patton MD, FACP [facility] C: [phone] O: [phone] F: [phone] Subjective Date of service: 01/11/20 Principal diagnosis: COVID Interval history: No fever. Oxygen requirements stable at 3 L/min via nasal cannula. Objective - Exam Narrative Exam: Physical Exam (reviewed in chart due to PPE conservation) Constitutional: limited due to PPE conservation strategy Head, Ears, Nose: limited due to PPE conservation strategy Eyes: limited due to PPE conservation strategy Neck: limited due to PPE conservation strategy Oral: limited due to PPE conservation strategy Cardiovascular: limited due to PPE conservation strategy Respiratory: limited due to PPE conservation strategy GI: limited due to PPE conservation strategy Musculoskeletal: limited due to PPE conservation strategy Skin: limited due to PPE conservation strategy Hem/Lymphatic: limited due to PPE conservation strategy Psych: limited due to PPE conservation strategy Neurological: limited due to PPE conservation strategy - Constitutional Vitals: Vital Signs Temp Pulse Resp BP Pulse Ox 97.7 F 93 H 18 140/77 92 01/11/20 06:51 01/11/20 07:33 01/11/20 07:33 01/11/20 06:51 01/11/20 07:33 Temperature -Last 24 Hours Temperature 97.7 F Temperature 98.0 F Temperature 97.5 F Temperature 98.1 F - Labs CBC & Chem 7: 01/03/20 00:22 01/03/20 00:53 Labs: Abnormal lab results 01/10/20 01/10/20 01/11/20 Range/Units 17:53 23:59 05:36 D-Dimer 396.04 H (0-234) ng/mlDDU POC Glucose 288 H 276 H (70-105) Ferritin (30.0-300.0) ng/mL C-Reactive Protein (0.00-1.30) mg/dL 01/11/20 01/11/20 01/11/20 Range/Units 05:36 05:36 08:01 D-Dimer (0-234) ng/mlDDU POC Glucose 162 H (70-105) Ferritin 1020.0 H (30.0-300.0) ng/mL C-Reactive Protein 2.60 H (0.00-1.30) mg/dL 01/11/20 Range/Units 11:33 D-Dimer (0-234) ng/mlDDU POC Glucose 210 H (70-105) Ferritin (30.0-300.0) ng/mL C-Reactive Protein (0.00-1.30) mg/dL
--- NOTE | 2020-01-11 13:37 | Discharge Summary ---
Providers - Providers Date of Admission: 01/03/20 03:47 Date of discharge: 01/11/20 Attending physician: FRANCOIS LOUIS 01/03/20 00:42 Consult to Physician [CONS] Urgent Comment: Consulting Provider: EDWINA HILL Physician Instructions: Reason For Exam: covid + hypoxia Primary care physician: FINANCE INTERN Hospitalization Condition: Serious Hospital course: History of presenting illness, patient is a 59-year-old male who has been having shortness of breath going on for 2 weeks, there was also history of fast associated fever, chills, body aches and cough. Patient denied history of chest pain, denied history of nausea and vomiting and said that his shortness of breath became progressively worse in the last 24 to 48 hours. Patient had positive COVID test on December 23 which was done at an urgent care. Patient was admitted appropriately managed evaluated by ID, COVID test on 01/03/2020 was negative, however had very high inflammatory markers Placed him in isolation per COVID protocol, received steroids, anticoagulation and oxygen Patient blood pressures blood sugars closely monitored medications optimized Home oxygen evaluation revealed patient's need for home oxygen at this time Case management has set up home oxygenm today patient is comfortable alert and awake Vital signs stable, still has mild shortness of breath Physical examination unremarkable More dynamically and clinically stable at discharge Advised to follow-up with primary care physician, tub tender per schedule Advised to use home oxygen 2 to 3 L as needed Patient is hemodynamically and clinically stable at discharge Discharge diagnosis; --COVID +ve 8 at the urgent care center COVID/test negative 01/03/2020 in the hospital Current Visit: Yes Status: Acute Plan to address problem: Trend high inflammatory markers Continue dexamethasone 6 mg total 10 days Anticoagulation with Lovenox No need for Remdesivir Elevated D-dimers; anticoagulation with Lovenox Changed to Eliquis 2.5 mg twice a day total 1 month Home oxygen is set up --Severe COVID bilateral pneumonia Current Visit: Yes Status: Acute Plan to address problem: community-acquired pneumonia IV antibiotics, oxygen titrate O2 sats to more than 90% Follow cultures Coronavirus PCR negative --Febrile illness; Current Visit: Yes Status: Acute Plan to address problem: Present on admission due to bilateral pneumonia, resolved --Type 2 diabetes mellitus; Accu-Chek sliding scale coverage ADA diet insulin -- Acute metabolic encephalopathy Current Visit: Yes Status: Acute Plan to address problem: Probably secondary to fever and sepsis. 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 CTA chest mild tortuous thoracic arch, no aneurysm or dissection --DVT prophylaxis Current Visit: Yes Status: Acute Plan to address problem: On Eliquis Disposition: DC/TX-06 HOME UNDER HOME [facility] Time spent for discharge: 32 min Core Measure Documentation - Palliative Care Palliative Care/ Comfort Measures: Not Applicable - Core Measures Any of the following diagnoses?: none Exam - Constitutional Vitals: Temp Pulse Resp BP Pulse Ox 97.7 F 93 H 18 140/77 92 01/11/20 06:51 01/11/20 07:33 01/11/20 07:33 01/11/20 06:51 01/11/20 07:33 General appearance: Present: no acute distress, well-nourished - EENT Eyes: Present: PERRL, EOM intact - Neck Neck: Present: supple, normal ROM - Respiratory Respiratory effort: normal Respiratory: bilateral: diminished, negative: rales, rhonchi, wheezing - Cardiovascular Rhythm: regular - Extremities Extremities: no ischemia, pulses intact Peripheral Pulses: within normal limits - Abdominal General gastrointestinal: Present: soft, non-tender, non-distended, normal bowel sounds - Integumentary Integumentary: Present: clear, warm - Musculoskeletal Musculoskeletal: strength equal bilaterally - Psychiatric Psychiatric: appropriate mood/affect, cooperative - Neurologic Neurologic: moves all extremities Plan Activity: advance as tolerated, fall precautions Diet: diabetic Additional Instructions: If you have worsening symptoms contact MD or go to emergency room. Advised to follow with primary care physician in 3 to 5 days. Advised to follow COVID 19 isolation, quarantine and other precautions given to you by the discharge nurse Follow up with: JUVE PARKER MD [Primary Care Provider] - 7 Days HENRY LEON MD [Staff Physician] - 7 Days Prescriptions: dexAMETHasone [Decadron] 6 mg PO DAILY #2 tablet Apixaban [Eliquis] 2.5 mg PO BID #42 tablet Metoprolol [Lopressor TAB] 12.5 mg PO BID #60 tablet Pantoprazole [Protonix TAB] 20 mg PO QDAY #20 tablet.
[2020-01-11 18:36] VITALS: BP 130/81
[2020-01-11] MEDS ORDERED: APIXABAN 5 MG TAB PO SCH ×2 (22:00)
== END 2020-01-11 19:07 | disposition home health service (06) | DRG 871 ==
LOC: ED 23:52 → 3A 01-03 02:54 → OBSVTOIN 01-03 03:47 → 3A 01-03 04:08
PROVIDERS: ADMIT Internal Medicine; ATTEND Internal Medicine
PROC: XW033E5 Introduction of Remdesivir Anti-infective into Peripheral Vein, Percutaneous Approach, New Technology Group 5 (ICD-10-PCS; principal; 2020-01-03)
PROC: XW033E5 Introduction of Remdesivir Anti-infective into Peripheral Vein, Percutaneous Approach, New Technology Group 5 (ICD-10-PCS; 2020-01-04)
DX: A41.89 Other specified sepsis (principal); J96.01 Acute respiratory failure with hypoxia; E43 Unspecified severe protein-calorie malnutrition; J12.89 Other viral pneumonia; G93.41 Metabolic encephalopathy; U07.1 COVID-19; R65.20 Severe sepsis without septic shock; R74.0 Nonspecific elevation of levels of transaminase and lactic acid dehydrogenase [LDH]; E11.9 Type 2 diabetes mellitus without complications; Z68.30 Body mass index [BMI] 30.0-30.9, adult
CPT/HCPCS: 36415; 71045; 71275; 80053; 82728; 82947; 82962; 83615; 84145; 85025; 85379; 86140; 87040; 93005; 93970; 94760; G0378; J0456; J0696; J1100; J1644; J1650; J1815; J7030; J7050; J8540; Q9967; U0003-CS